=== PATIENT | female | born 1965 | race Caucasian/White ===

== ENCOUNTER → 2018-04-12 14:33 | Outpatient (CLI) | payer OTHER, SELFPAY ==
--- NOTE | 2018-04-12 | DI.MG.S_ITS ---
BILATERAL DIGITAL SCREENING MAMMOGRAM 3D/2D WITH CAD: 04/12/2018 CLINICAL: Routine screening. Comparison is made to exams dated: 03/27/2017 mammogram, 02/21/2016 mammogram, and 07/26/2015 mammogram - [facility]. There are scattered fibroglandular elements in both breasts. Current study was also evaluated with a Computer Aided Detection (CAD) system. No significant masses, calcifications, or other findings are seen in either breast. There has been no significant interval change. IMPRESSION: NEGATIVE There is no mammographic evidence of malignancy. A 1 year screening mammogram is recommended. This exam was interpreted at Station ID: [id number]. NOTE: For mammograms, a report in lay terms will be sent to the patient. Approximately 15% of breast malignancies will not be visualized mammographically. In the management of a palpable breast mass, a negative mammogram must not discourage biopsy of a clinically suspicious lesion. Electronically Signed By: Georgina gomez/mitch:04/12/2018 15:05:46 copy to: ERICA FRANCISCO letter sent: Normal Exam ACR BI-RADS Category 1: Negative 3341F
== END ==
PROVIDERS: Family Provider Family Medicine; PCP Family Medicine; Visit Provider Family Medicine
DX: Z12.31 Encounter for screening mammogram for malignant neoplasm of breast (principal)
CPT/HCPCS: 77063; 77067

== ENCOUNTER → 2018-10-08 08:28 | Outpatient (CLI) | payer OTHER, SELFPAY ==
[2018-10-08 09:21] LABS: Add Manual Diff / Slide Review NO; Basophils Absolute Auto 100 /uL (0-100); Basophils Percent Auto 0.7 % (0-2); Eosinophils Absolute Auto 700 /uL (0-450); Eosinophils Percent Auto 9.8 % (2-4); Hematocrit 42.8 % (36-46); Hemoglobin 14.4 g/dL (12.0-16.0); Lymphocytes Absolute Auto 2000 /uL (1100-4500); Lymphocytes Percent Auto 27.2 % (25-40); Mean Corpuscular HGB Conc 33.7 % (30-36); Mean Corpuscular Hemoglobin 29.2 PG (26-34); Mean Corpuscular Volume 86.8 fL (80-100); Monocytes Absolute Auto 500 /uL (0-900); Monocytes Percent Auto 6.9 % (3-14); Neutrophils Absolute Auto 4100 /uL (1500-7000); Neutrophils Percent Auto 55.4 % (50-75); Platelet Count 187 X10^3/uL (150-400); Red Blood Cell Count 4.93 X10^6/uL (4.0-5.2); Red Cell Distribution Width 13.5 % (11.6-14.8); White Blood Cell Count 7.4 X10^3/uL (4.5-11.0)
[2018-10-08 09:52] LABS: Alanine Aminotransferase 28 IU/L (9-52); Albumin 4.4 g/dL (3.5-5.0); Albumin Globulin Ratio 1.5 (1.0-2.8); Alkaline Phosphatase 45 U/L (38-126); Aspartate Aminotransferase 23 IU/L (14-36); BUN Creatinine Ratio 13.8 (6-22); Bilirubin Total 0.6 mg/dL (0.2-1.3); Blood Urea Nitrogen 11 mg/dL (7-17); Calcium 8.9 mg/dL (8.4-10.2); Carbon Dioxide 25 mmol/L (22-32); Chloride 105 mmol/L (98-107); Cholesterol 223 mg/dL (140-199); Estimated Glomerular Filt Rate > 60.0 mL/min (>60); Globulin 2.9 g/dL (1.7-4.1); Glucose 89 mg/dL (70-100); HDL Cholesterol 53 mg/dL (40-60); HEMOLYSIS < 15 (0-50); LDL Cholesterol Calculated 133 mg/dL (<100); Potassium 4.1 mmol/L (3.4-5.1); Sodium 140 mmol/L (137-145); Total Protein 7.3 g/dL (6.3-8.2); Triglycerides 185 mg/dL (35-150)
[2018-10-08 10:18] LABS: TSH w/ Reflex to FT4 2.77 uIU/mL (0.47-4.68)
[2018-10-10 22:13] LABS: Estrogen 267.8 pg/mL
== END ==
PROVIDERS: Family Provider Family Medicine; PCP Family Medicine; Visit Provider Family Medicine
DX: E03.9 Hypothyroidism, unspecified (principal); N92.6 Irregular menstruation, unspecified; Z13.6 Encounter for screening for cardiovascular disorders
CPT/HCPCS: 36415; 80053; 80061; 82672; 83001; 84443; 85025

== ENCOUNTER 2019-04-11 07:32 | Day surgery (SDC) | payer OTHER, SELFPAY ==
[2019-04-11 07:50] VITALS: BP 136/83; PULSE 80; RESP 16; TEMP 36.6; O2SAT 98; BMI 26.6
[2019-04-11] MEDS: SODIUM CHLORIDE 0.9% 1,000 ML 200 ML IV (08:07)
[2019-04-11] MEDS: FLEETS ENEMA 1 EACH PR (08:11)
--- NOTE | 2019-04-11 08:33 | PM.HP.1 ---
History of Present Illness History of Present Illness Date Patient Seen: 04/11/19 Time Patient Seen: 08:33 Chief complaint: [id number] Narrative: 53-year-old woman presents for screening colonoscopy Last 12 years ago. No 1st degree family members with a history of colon cancer or rectal cancer. She is unsure of any family members have a history of polyps. No inflammatory bowel disease Patient History Medical History (Updated 05/25/18 @ 20:47 by Karen Clay) Hypothyroidism (Chronic) Surgical History (Updated 05/25/18 @ 20:47 by Karen Clay) History of third molar tooth extraction (~1981) Status post breast reduction (~2012) Status post laparoscopic supracervical hysterectomy (01/04/15) Status post ovarian cystectomy (~1994) Social History marital status: household members: spouse Smoking Status: Never smoker alcohol intake: current (ON OCCASION ) substance use type: does not use Family & Social History Social History: household members spouse Tobacco & Substance use: Smoking Status Never smoker alcohol intake current Meds Home Medications and Allergies Home Medications Medication Instructions Recorded Confirmed Type multivitamin [Multiple Vitamins] 1 tab PO QDAY #0 06/06/17 04/11/19 History levothyroxine 25 mcg tablet 25 mcg PO QDAY #90 tab 12/19/18 04/11/19 Rx Allergies Allergy/AdvReac Type Severity Reaction Status Date / Time meperidine Allergy Mild ITCH (NO Verified 12/19/18 14:30 RASH) Review of Systems Constitutional Constitutional: Denies fever(s) Eyes Eyes: Denies bulging eyes ENT Ears, Nose, Mouth, and Throat: No lip swelling Cardiovascular Cardiovascular: Denies generalize swelling Respiratory Respiratory: Denies stridor Gastrointestinal Gastrointestinal: Denies coffee ground emesis Musculoskeletal Musculoskeletal: Denies loss of height Integumentary/Breasts Skin/Breast: Denies wounds Neurologic Neurologic: Denies abnormal speech and Denies confusion Psychiatric Psychiatric: Denies confusion and Denies tactile hallucinations Endocrine Endocrine: Denies deepening of the voice Hematologic/Lymphatic Hematologic/Lymphatic: Denies lymphadenopathy Allergic/Immunologic Allergic/Immunologic: Denies lip swelling Exam Vital Signs (past 8 hours): - 04/11/19 07:50 Temperature 97.9 F Pulse Rate 80 Respiratory Rate 16 Blood Pressure 136/83 Pulse Oximetry 98 Oxygen Delivery Method Room Air Const General: cooperative and healthy appearing Orientation: alert HENMT Head: normal to inspection Nose: nares normal Mouth: oral mucosae normal and lip normal Eyes Eyelids: eyelids normal Conjunctivae: conjunctivae normal Sclera: sclerae normal Neck Neck: supple and other (No thyromegally) Chest Chest: other (LCTAB , regular respiratory effort) Cardio Rhythm: regular rhythm Heart Sounds: S1 normal, S2 normal, no gallops, no murmurs and no rubs GI Other: Abdomen soft nontender nondistended Skin General: no rashes or lesions noted Neuro General: alert and awake Psych Appearance: grossly normal Affect: normal affect Assessment & Plan Assessment & Plan narrative: 53-year-old woman presents for screening colonoscopy Risks and benefits of procedure discussed Risks including bleeding, , perforation, hypoxia, missed lesion all discussed Patient ready to proceed All questions answered
--- NOTE | 2019-04-11 08:39 | SUR.PREOP ---
Kristin delvalle given per Dr. Jauregui's instruction, reported pt's description of her output.
[2019-04-11] MEDS: fentaNYL 250 MCG/5 ML INJ IV (09:12)
[2019-04-11] MEDS: MIDAZOLAM 5 MG/5 ML VIAL IV (09:13)
--- NOTE | 2019-04-11 09:13 | PM.OP.ENDO ---
Operative Date/Time/Diagnoses Date of procedure: 04/11/19 Time of procedure: 09:13 Pre-op diagnosis: Colorectal cancer screening Procedure & Clinicians Study performed: Screening colonoscopy-complete Same procedure as scheduled: Yes Indications: 53-year-old woman 12 years status post most recent colonoscopy. No family history of colon or rectal cancer in first-degree relatives. No personal history of colon polyps Surgeon: Hunter Meredith Procedure Notes SCOAP/Timeout: Complete Procedure in detail: Patient was brought to the endoscopy suite, she was connected to appropriate monitoring. A time-out was completed. A digital rectal exam was performed without concern. She was sedated over the entire course of the procedure with 5 mg of midazolam and 150 micro g of fentanyl. 160 cm pediatric colonoscope was inserted through the anus and navigated through the folds of the rectum and the colon until the cecum was reached. This was done with minimal difficulty. The cecum was clearly identified via a prominent ileocecal valve as well as appendiceal orifice. The shoshone-paiute's foot was seen as well. The scope was then slowly withdrawn inspecting the mucosal surfaces. There are several large pools of liquid stool these were suctioned dry and irrigated for a good inspection of the colonic mucosa. At the level of the distal rectum the scope was retroflexed. No mucosal lesions were identified over the entire course of the procedure. Prep was adequate Patient tolerated the procedure well Scope withdrawal time: 9 Sedation minutes: 21 Specimen(s): none sent Complications: none Impression: Normal screening colonoscopy No polyps detected Post-procedure Recommendations: Colonscopy in 10 years Plan for aftercare: PACU then home Follow up: as needed Disposition: PACU
[2019-04-11 09:16] VITALS: BP 113/71; PULSE 71; RESP 14; TEMP 36.7; O2SAT 97
[2019-04-11 09:21] VITALS: BP 122/80; PULSE 70; RESP 12; O2SAT 97
[2019-04-11 09:26] VITALS: BP 113/76; PULSE 72; RESP 15; TEMP 36.8; O2SAT 97
[2019-04-11 09:39] VITALS: BP 110/69; PULSE 70; RESP 16; TEMP 36.4; O2SAT 99
== END 2019-04-11 09:41 | disposition home or self-care (01) ==
PROVIDERS: Family Provider Family Medicine; PCP Family Medicine; Visit Provider Surgery
PROC: 0DJD8ZZ Inspection of Lower Intestinal Tract, Via Natural or Artificial Opening Endoscopic (ICD-10-PCS; CPT 45378; principal; 2019-04-11 08:45)
DX: Z12.11 Encounter for screening for malignant neoplasm of colon (principal)
CPT/HCPCS: 45378; 99152; J2250; J3010

== ENCOUNTER → 2019-04-14 14:19 | Outpatient (CLI) | payer OTHER, SELFPAY ==
--- NOTE | 2019-04-14 | DI.MG.S_ITS ---
BILATERAL DIGITAL SCREENING MAMMOGRAM 3D/2D WITH CAD: 04/14/2019 CLINICAL: Routine screening. Comparison is made to exams dated: 04/12/2018 mammogram, 03/27/2017 mammogram, and 02/21/2016 mammogram - [facility]. There are scattered fibroglandular elements in both breasts. Current study was also evaluated with a Computer Aided Detection (CAD) system. No significant masses, calcifications, or other findings are seen in either breast. There has been no significant interval change. IMPRESSION: NEGATIVE There is no mammographic evidence of malignancy. A 1 year screening mammogram is recommended. This exam was interpreted at Station ID: [id number]. NOTE: For mammograms, a report in lay terms will be sent to the patient. Approximately 15% of breast malignancies will not be visualized mammographically. In the management of a palpable breast mass, a negative mammogram must not discourage biopsy of a clinically suspicious lesion. Electronically Signed By: Georgina gomez/mitch:04/14/2019 15:24:56 copy to: ERICA FRANCISCO letter sent: Normal Exam ACR BI-RADS Category 1: Negative 3341F
== END ==
PROVIDERS: PCP Family Medicine; Visit Provider Family Medicine
DX: Z12.31 Encounter for screening mammogram for malignant neoplasm of breast (principal)
CPT/HCPCS: 77063; 77067

== ENCOUNTER → 2020-01-22 10:36 | Outpatient (CLI) | payer OTHER, SELFPAY ==
[2020-01-22 11:42] LABS: Add Manual Diff / Slide Review NO; Basophils Absolute Auto 100 /uL (0-100); Basophils Percent Auto 0.8 % (0-2); Eosinophils Absolute Auto 400 /uL (0-450); Eosinophils Percent Auto 5.4 % (2-4); Hematocrit 44.2 % (36-46); Hemoglobin 15.6 g/dL (12.0-16.0); Lymphocytes Absolute Auto 2300 /uL (1100-4500); Lymphocytes Percent Auto 34.4 % (25-40); Mean Corpuscular HGB Conc 35.3 % (30-36); Mean Corpuscular Hemoglobin 30.2 PG (26-34); Mean Corpuscular Volume 85.5 fL (80-100); Monocytes Absolute Auto 600 /uL (0-900); Monocytes Percent Auto 8.3 % (3-14); Neutrophils Absolute Auto 3400 /uL (1500-7000); Neutrophils Percent Auto 51.1 % (50-75); Platelet Count 224 X10^3/uL (150-400); Red Blood Cell Count 5.17 X10^6/uL (4.0-5.2); Red Cell Distribution Width 13.2 % (11.6-14.8); White Blood Cell Count 6.6 X10^3/uL (4.5-11.0)
[2020-01-22 11:52] LABS: Alanine Aminotransferase 20 IU/L (<35); Albumin 4.9 g/dL (3.5-5.0); Albumin Globulin Ratio 1.8 (1.0-2.8); Alkaline Phosphatase 61 U/L (38-126); Aspartate Aminotransferase 28 IU/L (14-36); BUN Creatinine Ratio 16.1 (6-22); Bilirubin Total 0.9 mg/dL (0.2-1.3); Blood Urea Nitrogen 14 mg/dL (7-17); Calcium 9.9 mg/dL (8.4-10.2); Carbon Dioxide 24 mmol/L (22-32); Chloride 104 mmol/L (98-107); Cholesterol 248 mg/dL (140-199); Estimated Glomerular Filt Rate > 60.0 mL/min (>60); Globulin 2.8 g/dL (1.7-4.1); Glucose 95 mg/dL (70-100); HDL Cholesterol 61 mg/dL (40-60); HEMOLYSIS < 15 (0-50); LDL Cholesterol Calculated 160 mg/dL (<100); Potassium 4.6 mmol/L (3.4-5.1); Sodium 138 mmol/L (137-145); Total Protein 7.7 g/dL (6.3-8.2); Triglycerides 133 mg/dL (35-150)
[2020-01-22 12:24] LABS: TSH w/ Reflex to FT4 1.58 uIU/mL (0.47-4.68)
[2020-01-22 16:17] LABS: Luteinizing Hormone 8.39 mIU/mL
[2020-01-28 02:13] LABS: Estrogen 104 pg/mL (.)
== END ==
PROVIDERS: PCP Family Medicine; Referring Provider Family Medicine; Visit Provider Family Medicine
DX: E03.9 Hypothyroidism, unspecified (principal); E78.5 Hyperlipidemia, unspecified; R23.2 Flushing
CPT/HCPCS: 36415; 80053; 80061; 82672; 83001; 83002; 84443; 85025

== ENCOUNTER → 2020-05-01 14:00 | Outpatient (CLI) | payer OTHER, SELFPAY ==
--- NOTE | 2020-05-01 | DI.MG.S_ITS ---
BILATERAL DIGITAL SCREENING MAMMOGRAM 3D/2D WITH CAD: 05/01/2020 CLINICAL: Routine screening. Comparison is made to exams dated: 04/14/2019 mammogram, 04/12/2018 mammogram, and 03/27/2017 mammogram - [facility]. There are scattered fibroglandular elements in both breasts. Current study was also evaluated with a Computer Aided Detection (CAD) system. No significant masses, calcifications, or other findings are seen in either breast. There has been no significant interval change. IMPRESSION: NEGATIVE There is no mammographic evidence of malignancy. A 1 year screening mammogram is recommended. This exam was interpreted at Station ID: [id number]. NOTE: For mammograms, a report in lay terms will be sent to the patient. Approximately 15% of breast malignancies will not be visualized mammographically. In the management of a palpable breast mass, a negative mammogram must not discourage biopsy of a clinically suspicious lesion. Electronically Signed By: Georgina gomez/mitch:05/02/2020 16:10:56 copy to: ERICA FRANCISCO letter sent: Normal Exam ACR BI-RADS Category 1: Negative 3341F
== END ==
PROVIDERS: PCP Family Medicine; Referring Provider Family Medicine; Visit Provider Family Medicine
DX: Z12.31 Encounter for screening mammogram for malignant neoplasm of breast (principal)
CPT/HCPCS: 77063; 77067

== ENCOUNTER → 2020-11-11 15:51 | Outpatient (CLI) | payer OTHER, SELFPAY ==
[2020-11-11] MEDS: COVID-19 VACC #1, MRNA(MOD) 100 MCG/0.5 ML VIAL IM (16:01)
== END ==
PROVIDERS: PCP Family Medicine; Visit Provider Internal Medicine
DX: Z23 Encounter for immunization (principal)
CPT/HCPCS: 0011A; 91301

== ENCOUNTER → 2020-12-09 15:50 | Outpatient (CLI) | payer OTHER, SELFPAY ==
[2020-12-09] MEDS: COVID-19 VACC #2, MRNA(MOD) 100 MCG/0.5 ML VIAL IM (15:56)
== END ==
PROVIDERS: PCP Family Medicine; Visit Provider Internal Medicine
DX: Z23 Encounter for immunization (principal)
CPT/HCPCS: 0012A; 91301

== ENCOUNTER → 2021-04-07 15:05 | Outpatient (CLI) | payer OTHER, SELFPAY | PROVIDERS: PCP Family Medicine; Referring Provider Family Medicine; Visit Provider Family Medicine | DX: Z13.820 Encounter for screening for osteoporosis (principal) | CPT/HCPCS: 77080 ==

== ENCOUNTER → 2021-05-03 08:15 | Outpatient (CLI) | payer OTHER, SELFPAY ==
[2021-05-03 08:54] LABS: Add Manual Diff / Slide Review NO; Basophils Absolute Auto 0 /uL (0-100); Basophils Percent Auto 0.6 % (0-2); Eosinophils Absolute Auto 600 /uL (0-450); Eosinophils Percent Auto 9.2 % (2-4); Hematocrit 42.4 % (36-46); Hemoglobin 14.2 g/dL (12.0-16.0); Lymphocytes Absolute Auto 2100 /uL (1100-4500); Mean Corpuscular HGB Conc 33.6 % (30-36); Mean Corpuscular Hemoglobin 28.6 PG (26-34); Mean Corpuscular Volume 85.3 fL (80-100); Monocytes Absolute Auto 500 /uL (0-900); Monocytes Percent Auto 7.5 % (3-14); Neutrophils Absolute Auto 3200 /uL (1500-7000); Neutrophils Percent Auto 49.7 % (50-75); Platelet Count 186 X10^3/uL (150-400); Red Blood Cell Count 4.97 X10^6/uL (4.0-5.2); Red Cell Distribution Width 13.7 % (11.6-14.8); White Blood Cell Count 6.5 X10^3/uL (4.5-11.0)
[2021-05-03 09:18] LABS: Alanine Aminotransferase 30 IU/L (<35); Albumin 4.4 g/dL (3.5-5.0); Albumin Globulin Ratio 1.6 (1.0-2.8); Alkaline Phosphatase 51 U/L (38-126); Aspartate Aminotransferase 28 IU/L (14-36); BUN Creatinine Ratio 16.3 (6-22); Bilirubin Total 0.6 mg/dL (0.2-1.3); Blood Urea Nitrogen 13 mg/dL (7-17); Calcium 9.4 mg/dL (8.4-10.2); Carbon Dioxide 26 mmol/L (22-32); Chloride 105 mmol/L (98-107); Cholesterol 231 mg/dL (140-199); Estimated Glomerular Filt Rate > 60.0 mL/min (>60); Globulin 2.7 g/dL (1.7-4.1); Glucose 91 mg/dL (70-100); HDL Cholesterol 56 mg/dL (40-60); HEMOLYSIS < 15 (0-50); LDL Cholesterol Calculated 143 mg/dL (<100); Potassium 4.4 mmol/L (3.4-5.1); Sodium 140 mmol/L (137-145); Total Protein 7.1 g/dL (6.3-8.2); Triglycerides 161 mg/dL (35-150)
[2021-05-03 09:31] LABS: Follicle Stimulating Hormone 74.1 mIU/mL; Luteinizing Hormone 44.8 mIU/mL
[2021-05-03 09:44] LABS: Thyroid Stimulating Hormone 1.77 uIU/mL (0.47-4.68)
[2021-05-03 09:47] LABS: Estradiol, Total 10.6 pg/mL
== END ==
PROVIDERS: PCP Family Medicine; Referring Provider Family Medicine; Visit Provider Family Medicine
DX: E03.9 Hypothyroidism, unspecified (principal); N95.1 Menopausal and female climacteric states
CPT/HCPCS: 36415; 80053; 80061; 82670; 83001; 83002; 84443; 85025

== ENCOUNTER → 2021-05-19 16:39 | Outpatient (CLI) | payer OTHER, SELFPAY ==
--- NOTE | 2021-05-19 16:40 | DI.MG.S_ITS ---
BILATERAL DIGITAL SCREENING MAMMOGRAM 3D/2D WITH CAD: 05/19/2021 CLINICAL: Routine screening. Comparison is made to exams dated: 05/01/2020 mammogram, 04/14/2019 mammogram, 04/12/2018 mammogram, 03/27/2017 mammogram, and 02/21/2016 mammogram - [facility]. There are scattered fibroglandular elements in both breasts. Current study was also evaluated with a Computer Aided Detection (CAD) system. No significant masses, calcifications, or other findings are seen in either breast. There has been no significant interval change. IMPRESSION: NEGATIVE There is no mammographic evidence of malignancy. A 1 year screening mammogram is recommended. This exam was interpreted at Station ID: [id number]. NOTE: For mammograms, a report in lay terms will be sent to the patient. Approximately 15% of breast malignancies will not be visualized mammographically. In the management of a palpable breast mass, a negative mammogram must not discourage biopsy of a clinically suspicious lesion. Electronically Signed By: Mike polanco/mitch:05/19/2021 17:37:31 copy to: ERICA FRANCISCO letter sent: Normal Exam ACR BI-RADS Category 1: Negative 3341F
== END ==
PROVIDERS: PCP Family Medicine; Referring Provider Family Medicine; Visit Provider Family Medicine
DX: Z12.31 Encounter for screening mammogram for malignant neoplasm of breast (principal)
CPT/HCPCS: 77063; 77067

== ENCOUNTER → 2022-05-22 07:35 | Outpatient (CLI) | payer OTHER, SELFPAY ==
--- NOTE | 2022-05-22 07:36 | DI.MG.S_ITS ---
BILATERAL DIGITAL SCREENING MAMMOGRAM 3D/2D WITH CAD: 05/22/2022 CLINICAL: Routine screening. Comparison is made to exams dated: 05/19/2021 mammogram, 05/01/2020 mammogram, and 04/14/2019 mammogram - [facility]. There are scattered areas of fibroglandular density in both breasts (category b / 25%-50% glandular tissue). Current study was also evaluated with a Computer Aided Detection (CAD) system. There is a possible developing new asymmetry in the left breast central to the nipple middle depth. No other significant masses, calcifications, or other findings are seen in either breast. IMPRESSION: INCOMPLETE: NEEDS ADDITIONAL IMAGING EVALUATION The possible developing new asymmetry in the left breast is indeterminate. Additional views with possible ultrasound are recommended. Based on the Tyrer Cuzick model (a risk assessment model) the patient's lifetime risk is 11.1% and her 10 year risk is 3.4%. According to the ACR, ACS, and NCCN guidelines, an annual breast MRI exam along with mammogram is recommended if the patient's lifetime risk is 20% or greater. This exam was interpreted at Station ID: [id number]. NOTE: For mammograms, a report in lay terms will be sent to the patient. Approximately 15% of breast malignancies will not be visualized mammographically. In the management of a palpable breast mass, a negative mammogram must not discourage biopsy of a clinically suspicious lesion. Electronically Signed By: Erica Alfaro M.D., jr/mitch:05/30/2022 09:05:35 copy to: ERICA FRANCISCO letter sent: Additional Imaging Needed ACR BI-RADS Category 0: Incomplete 3340F
== END ==
PROVIDERS: PCP Family Medicine; Referring Provider Family Medicine; Visit Provider Family Medicine
DX: Z12.31 Encounter for screening mammogram for malignant neoplasm of breast (principal)
CPT/HCPCS: 77063; 77067

== ENCOUNTER → 2022-06-29 08:39 | Outpatient (CLI) | payer OTHER, SELFPAY ==
--- NOTE | 2022-06-29 08:39 | DI.MG.S_ITS ---
UNILATERAL LEFT DIGITAL DIAGNOSTIC MAMMOGRAM 3D/2D WITH ADDITIONAL VIEWS: 06/29/2022 CLINICAL: Patient returns today to evaluate an asymmetry in the left breast. Comparison is made to exams dated: 05/22/2022 mammogram, 05/19/2021 mammogram, and 05/01/2020 mammogram - [facility]. There are scattered areas of fibroglandular density in the left breast (category b / 25%-50% glandular tissue). There is a possible focal asymmetry in the left breast central to the nipple middle depth. This is less prominent. No other significant masses or calcifications are seen in the breast. IMPRESSION: INCOMPLETE: NEEDS ADDITIONAL IMAGING EVALUATION Possible focal asymmetry in the left breast resembles a fibroglandular tissue or lymph node and is indeterminate. A targeted ultrasound is recommended and will immediately follow. Based on the Tyrer Cuzick model (a risk assessment model) the patient's lifetime risk is 11.1% and her 10 year risk is 3.4%. According to the ACR, ACS, and NCCN guidelines, an annual breast MRI exam along with mammogram is recommended if the patient's lifetime risk is 20% or greater. This exam was interpreted at Station ID: [id number]. NOTE: For mammograms, a report in lay terms will be sent to the patient. Approximately 15% of breast malignancies will not be visualized mammographically. In the management of a palpable breast mass, a negative mammogram must not discourage biopsy of a clinically suspicious lesion. Electronically Signed By: Mike Chang M.D. [facility]/:06/29/2022 09:55:53 copy to: ERICA FRANCISCO ACR BI-RADS Category 0: Incomplete 3340F
--- NOTE | 2022-06-29 08:39 | DI.US.S_ITS ---
LIMITED ULTRASOUND OF LEFT BREAST: 06/29/2022 CLINICAL: Patient returns today to evaluate a focal asymmetry in the left breast. Comparison is made to exams dated: 06/29/2022 mammogram, 05/22/2022 mammogram, 05/19/2021 mammogram, 05/01/2020 mammogram, and 04/14/2019 mammogram - [facility]. Real-time ultrasound of the left breast was performed. Zaragoza scale images of the real-time examination were reviewed. No significant abnormalities were seen sonographically in the left breast in the region of the possible asymmetry. IMPRESSION: NEGATIVE There is no sonographic evidence of malignancy. A 1 year screening mammogram is recommended. Exam findings were conveyed to the patient. This exam was interpreted at Station ID: [id number]. Electronically Signed By: Mike Chang M.D. sl[facility]/:06/29/2022 09:55:12 copy to: ERICA FRANCISCO letter sent: Normal Exam Ultrasound BI-RADS: 1 Negative
== END ==
PROVIDERS: PCP Family Medicine; Referring Provider Family Medicine; Visit Provider Family Medicine
DX: R92.8 Other abnormal and inconclusive findings on diagnostic imaging of breast (principal)
CPT/HCPCS: 76642; 77065; G0279

== ENCOUNTER → 2022-11-27 11:59 | Outpatient (CLI) | payer OTHER, MEDICAID, SELFPAY ==
[2022-11-27 13:18] LABS: Add Manual Diff / Slide Review NO; Basophils Absolute Auto 100 /uL (0-100); Basophils Percent Auto 0.8 % (0-2); Eosinophils Absolute Auto 500 /uL (0-450); Eosinophils Percent Auto 6.5 % (2-4); Hematocrit 42.9 % (36-46); Hemoglobin 14.8 g/dL (12.0-16.0); Lymphocytes Absolute Auto 2600 /uL (1100-4500); Lymphocytes Percent Auto 31.8 % (25-40); Mean Corpuscular HGB Conc 34.4 % (30-36); Mean Corpuscular Hemoglobin 28.7 PG (26-34); Mean Corpuscular Volume 83.4 fL (80-100); Monocytes Absolute Auto 600 /uL (0-900); Neutrophils Absolute Auto 4400 /uL (1500-7000); Neutrophils Percent Auto 53.9 % (50-75); Platelet Count 217 X10^3/uL (150-400); Red Blood Cell Count 5.14 X10^6/uL (4.0-5.2); Red Cell Distribution Width 13.5 % (11.6-14.8); White Blood Cell Count 8.2 X10^3/uL (4.5-11.0)
[2022-11-27 13:33] LABS: Alanine Aminotransferase 35 IU/L (<35); Albumin 4.6 g/dL (3.5-5.0); Albumin Globulin Ratio 1.6 (1.0-2.8); Alkaline Phosphatase 69 U/L (38-126); Aspartate Aminotransferase 31 IU/L (14-36); BUN Creatinine Ratio 11.4 (6-22); Bilirubin Total 0.7 mg/dL (0.2-1.3); Blood Urea Nitrogen 9 mg/dL (7-17); Calcium 9.5 mg/dL (8.4-10.2); Carbon Dioxide 27 mmol/L (22-32); Chloride 104 mmol/L (98-107); Cholesterol 247 mg/dL (140-199); Estimated Glomerular Filt Rate > 60 mL/min (>60); Globulin 2.8 g/dL (1.7-4.1); Glucose 89 mg/dL (70-100); HDL Cholesterol 65 mg/dL (40-60); HEMOLYSIS < 15 (0-50); LDL Cholesterol Calculated 153 mg/dL (<100); Potassium 4.2 mmol/L (3.4-5.1); Sodium 139 mmol/L (137-145); Total Protein 7.4 g/dL (6.3-8.2); Triglycerides 143 mg/dL (35-150)
[2022-11-27 14:03] LABS: TSH w/ Reflex to FT4 1.33 uIU/mL (0.47-4.68)
[2022-11-28 20:02] LABS: Follicle Stimulating Hormone 71.3 mIU/mL; Luteinizing Hormone 35.4 mIU/mL
== END ==
PROVIDERS: PCP Family Medicine; Referring Provider Family Medicine; Visit Provider Family Medicine
DX: D25.9 Leiomyoma of uterus, unspecified (principal); E03.9 Hypothyroidism, unspecified; Z13.220 Encounter for screening for lipoid disorders; Z79.899 Other long term (current) drug therapy; N92.6 Irregular menstruation, unspecified
CPT/HCPCS: 36415; 80053; 80061; 83001; 83002; 84443; 85025

== ENCOUNTER → 2022-12-15 14:05 | Outpatient (CLI) | payer OTHER, MEDICAID, SELFPAY ==
--- NOTE | 2022-12-15 14:06 | DI.US.S_ITS ---
PROCEDURE: US PELVIC COMPLETE INDICATIONS: ovarian pain TECHNIQUE: Real-time scanning was performed of the pelvic organs, with image documentation. Additional endovaginal scanning was necessary due to incomplete visualization of the adnexal and endometrial structures by transabdominal scanning. COMPARISON: None. FINDINGS: Uterus: Surgically absent. Ovaries: The right ovary is not visualized. The left ovary measures 1.4 x 0.9 x 1.2 cm, with a calculated ovarian volume of 1 cc. There is normal vascularity in left ovary. Other: No pathologic free abdominal or pelvic fluid. IMPRESSION: 1. A cause for pelvic pain is not identified. 2. Right ovary is not visualized. If clinical concern for pathology persists, recommend CT or MRI for follow-up. 3. Normal appearance of left ovary. 4. No free fluid in pelvis We strive to produce accurate, complete, and clear reports of imaging services. To assist us in improving patient care, this report was composed using standard report templates and voice recognition software. Therefore, it may contain abnormal punctuation, insertions and/or omissions. Occasional wrong-word or sound-alike substitutions may occur. Though we review the report and make efforts to correct it, we do recommend that the report be read carefully in proper context to recognize any text inaccuracies. Dictated by: Zuly Arango M.D. on 12/15/2022 at 17:12 Approved by: Zuly Arango M.D. on 12/15/2022 at 17:15
== END ==
PROVIDERS: Family Provider Family Medicine; PCP Family Medicine; Referring Provider Family Medicine; Visit Provider Family Medicine
DX: N94.89 Other specified conditions associated with female genital organs and menstrual cycle (principal)
CPT/HCPCS: 76830; 76856; 93976

== ENCOUNTER → 2023-04-25 08:04 | Outpatient (CLI) | payer OTHER, MEDICAID, SELFPAY ==
[2023-04-25 10:31] LABS: TSH w/ Reflex to FT4 2.75 uIU/mL (0.47-4.68)
[2023-04-27 04:17] LABS: Hepatitis B Surf Ab Qualitativ Non Reactive (.)
== END ==
PROVIDERS: Family Provider Family Medicine; PCP Family Medicine; Referring Provider Family Medicine; Visit Provider Family Medicine
DX: Z01.84 Encounter for antibody response examination (principal); E03.9 Hypothyroidism, unspecified
CPT/HCPCS: 36415; 84443; 86706

== ENCOUNTER 2023-05-31 09:30 | Outpatient (RCR) | payer OTHER, MEDICAID, SELFPAY ==
--- NOTE | 2023-02-11 16:19 | PT.OIE ---
Current Diagnoses Stiffness of unspecified hip, not elsewhere classified (02/06/23) Sacrococcygeal disorders, not elsewhere classified (02/06/23) Radiculopathy, sacral and sacrococcygeal region (02/06/23) Pelvic and perineal pain (02/06/23) Past Medical History (Last Updated 05/25/18 @ 20:47 by Karen Clay) Hypothyroidism Past Surgical History (Last Updated 05/25/18 @ 20:47 by Karen Clay) History of third molar tooth extraction (~1981) Status post breast reduction (~2012) Status post laparoscopic supracervical hysterectomy (01/04/15) Status post ovarian cystectomy (~1994) Visit Care Team Role Provider Type Ashutosh Le MD Attending Provider Physician Family Provider Primary Care Provider Referring Provider Specialty: Family Practice Address: [address] [place] [address] Email: [email or web address] Physical Therapy Initial Evaluation PT-OP-A Visit Information Start: 02/06/23 10:34 Freq: Status: Active Protocol: Document 02/06/23 10:37 [facility] (Rec: 02/06/23 11:17 [facility] [id number]) Out-Patient Physical Therapy Visit Information Visit Information Visit Type Initial Evaluation Visit Start Time 10:35 Visit Stop Time 11:15 Total Visit Minutes 40 Visit Number 1 Evaluation Information Evaluation Date 02/06/23 PT-OP-B Current Condition Start: 02/06/23 10:34 Freq: Status: Active Protocol: Document 02/06/23 10:37 [facility] (Rec: 02/06/23 11:17 [facility] [id number]) Current Condition History of Current Condition Onset Date chronic over 15 years Current Complaints left tailbone and left buttock pain History of Current Condition She describes the pain as to the left of the tailbone type pain that comes and goes that has been going on for approx 15 years since she gave to Will. Once it is aggravated it is horrible pain and it lasts from 2 days. The pain will radiate from her left buttock down the back of her leg to her ankle. She describes the pain a nausea pain and there is swelling and tightness. Things like a road trip would aggravate it. 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 hx of right knee ACL rupture and LCL so her muscles in her right quad are holding it together. The other issue she has is when she has a virus it can exxacerbate her sympotms. 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 Functional Limitations- Work/School limited with sitting duration due to pain PT-OP-C Subjective Start: 02/06/23 10:34 Freq: Status: Active Protocol: Document 02/06/23 10:30 [facility] (Rec: 02/11/23 09:43 [facility] [id number]) OP-PT Pain Assessment Location left sacral pain Pain Location Details let side of sacrum radiating into the buttocks and tailbone Intensity 8 Description Radiating,Shooting,Stabbing Description- Other worse with sitting activities Frequency Frequent PT-OP-F Manual Assessment Start: 02/06/23 10:34 Freq: Status: Active Protocol: Document 02/06/23 10:30 [facility] (Rec: 02/11/23 16:02 [facility] [id number]) Manual Assessments Soft Tissue Assessment Soft Tissue Mobility Assessment guarding along the gluteals and pt holds herself very tight in the gluteals, paraspinal guarding B and piriformis guarding, iliopsoas tightness R >L Joint Mobility Assessment Joint Mobility Assessment SI unlocks with ASLR raise, sacrum is held in a nutated and rotated left position Other Manual Assessments Other Manual Assessments posterior pelvic tilt of the sacrum, hamstring tightness in standing keeps pt in a posterior pelvic tilt position PT-OP-J Posture/Palpation/Skin Start: 02/06/23 10:34 Freq: Status: Active Protocol: Document 02/06/23 10:30 [facility] (Rec: 02/11/23 16:02 [facility] [id number]) Posture Evaluation Comments Posture Comments posterior pelvic tilt with gluteal guarding Palpation Assessment Location left sacral BARBY Palpation Findings Soft Tissue Tightness,Muscle Guarding,Tenderness PT-OP-K Range of Motion Start: 02/11/23 16:02 Freq: Status: Active Protocol: Document 02/06/23 10:30 [facility] (Rec: 02/11/23 16:04 [facility] [id number]) Hip Goniometric Range of Motion Hip Right Hip ROM WFL No Testing Position Supine Flexion w/Knee Flexed 100 Straight Leg Raise 55 Internal Rotation 10 External Rotation 35 Comments + brenna test for iliopsoas rightness R>L left Hip ROM WFL No Testing Position Supine Flexion w/Knee Flexed 100 Straight Leg Raise 50 Internal Rotation 5 External Rotation 30 Comments + brenna test for iliopsoas tightness Hip ROM Limitations Hip ROM Limitations Soft Tissue Tightness Comments IR limited and piriformis tightness L>R PT-OP-M Strength Start: 02/06/23 10:34 Freq: Status: Active Protocol: Document 02/06/23 10:30 [facility] (Rec: 02/11/23 16:02 [facility] [id number]) Trunk Strength Trunk Manual Muscle Testing Testing Position Supine Flexion 3 Fair Core Stabilization decreased core stabilization and TA activation PT-OP-Q Treatments Start: 02/06/23 10:34 Freq: Status: Active Protocol: Document 02/06/23 13:41 [facility] (Rec: 02/06/23 13:44 [facility] [id number]) Therapeutic Exercises Supine Exercises happy baby Reps/Minutes 1-2 reps holding at least 30 sec supine piriformis stretch with opp leg straight Side bilateral Reps/Minutes 1-2 reps holding at least 30 sec Comments cues to pull knee across the chest hip flexor stretch Side bilateral Reps/Minutes 1-2 reps holding at least 30 seconds Comments in brenna test position Other Exercises cat cow Reps/Minutes x 10 reps PT-OP-T Assessment and Plan Start: 02/06/23 10:34 Freq: Status: Active Protocol: Document 02/06/23 10:30 [facility] (Rec: 02/11/23 16:11 [facility] [id number]) Physical Therapy Assessment Rehab Potential Rehabilitation Potential Excellent Evaluation Complexity Number of Personal Factors/Comorbidities 0 Number of Body Systems Impaired 1-2 Clinical Presentation at Evaluation Stable Impairments Impairments Activity Tolerance,Functional Activities,Pain,Posture,ROM, Soft Tissue Mobility,Strength Goals 3 Impairment Decreased hip ROM with IR on the left being the most tight as compared to the right. Piriformis tightness and guarding on the left. Ship Carpenter Goal (LTG) Nusrat demonstrates improved hip ROM on the left to be equal to the right LTG Duration 12 weeks 2 Impairment Poor postural habits with pt standing with gluteals clenched and in a posterior pelvic tilt position Short Term Goal (STG) Nusrat is educated on seating the femoral heads in standing to reduce tone of the gluteals and reduce pain STG Duration 4 weeks Ship Carpenter Goal (LTG) Nusrat is able to mincemeat maker neutral spine and relaxed gluteals LTG Duration 12 weeks 1 Impairment left sided sacral and coccyx pain rated 8/10 made worse with sitting Care Home Goal (LTG) Nusrat reports a overall reduction in pain and is able to sit for a hour or longer duration LTG Duration 12 weeks Assessment Summary Assessment Nusrat is a 57 year old female referred to PT with pelvic pain and left sacral/coccyx pain. Nusrat feels her anterior pelvic pain was bowel related and has resolved at this point. She has chief complaints of chronic left sacral and tailbone pain since her vaginal delivery 15 years ago. Sitting increases her pain and she has recently stopped working as the sitting was too painful. With examination she stands in a posteriorly tilted position with guarding of the gluteals. She has pain along the left lateral angle of the sacrum and her sacrum is rotated to the left. She has decreased hip rotation both IR and ER on the left as compared to the right. Her right leg is shorter in supine and she does use a lift for her right foot . Nusrat rates her pain a 6- 8/10 in the left sacral region and into the gluteals. She presents with pelvic floor and core weakenss for SI stabilization. Nusrat has a history of a right knee ACL and LCL tear 6 years ago. She elected not to do surgery and as a result of this tear notes she is always guarded in her hamstring and quads on the left. Treatment for Nusrat will focus on postural modifications, stretches for the gluteals and stabilization exercises for her core. Manual therapy techniques will be used for SI and sacral alignment. Physical Therapy Plan Frequency and Duration Frequency of Treatment 2x/Week Duration of treatment (weeks) 12 Plan of Care Start Date 02/06/23 Plan of Care End Date 05/01/23 Therapeutic Interventions Therapeutic Interventions Home Exercise Program,Joint Mobilizations,Manual Therapy, Neuromuscular Re-education, Patient/Caregiver Education, Self-Care/Home Management,Soft Tissue Mobilization, Therapeutic Exercises Next Visit Focus/Plan Next Note Type Treatment Note Next Visit Plan review stretches given this visit and begin core stabilization, work on manual therapy techniques for sacral alignement and piriformis release on the left
--- NOTE | 2023-02-11 16:20 | PT.OPPOC ---
Physical, Occupational & Speech Therapy At [facility] Current Diagnoses Stiffness of unspecified hip, not elsewhere classified (02/06/23) Sacrococcygeal disorders, not elsewhere classified (02/06/23) Radiculopathy, sacral and sacrococcygeal region (02/06/23) Pelvic and perineal pain (02/06/23) Visit Care Team Role Provider Type Ashutosh Le MD Attending Provider Physician Family Provider Primary Care Provider Referring Provider Specialty: Family Practice Address: [address] [place] [address] Email: [email or web address] Plan Of Care PT-OP-T Assessment and Plan Start: 02/06/23 10:34 Freq: Status: Active Protocol: Document 02/06/23 10:30 [facility] (Rec: 02/11/23 16:11 [facility] [id number]) Physical Therapy Assessment Rehab Potential Rehabilitation Potential Excellent Evaluation Complexity Number of Personal Factors/Comorbidities 0 Number of Body Systems Impaired 1-2 Clinical Presentation at Evaluation Stable Impairments Impairments Activity Tolerance,Functional Activities,Pain,Posture,ROM, Soft Tissue Mobility,Strength Goals 3 Impairment Decreased hip ROM with IR on the left being the most tight as compared to the right. Piriformis tightness and guarding on the left. 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 Nusrat feels her anterior pelvic pain was bowel related and has resolved at this point. She has chief complaints of chronic left sacral and tailbone pain since her vaginal delivery 15 years ago. Sitting increases her pain and she has recently stopped working as the sitting was too painful. With examination she stands in a posteriorly tilted position with guarding of the gluteals. She has pain along the left lateral angle of the sacrum and her sacrum is rotated to the left. She has decreased hip rotation both IR and ER on the left as compared to the right. Her right leg is shorter in supine and she does use a lift for her right foot . Nusrat rates her pain a 6- 8/10 in the left sacral region and into the gluteals. She presents with pelvic floor and core weakness for SI stabilization. Nusrat has a history of a right knee ACL and LCL tear 6 years ago. She elected not to do surgery and as a result of this tear notes she is always guarded in her hamstring and quads on the left. Treatment for Nusrat will focus on postural modifications, stretches for the gluteals and stabilization exercises for her core. Manual therapy techniques will be used for SI and sacral alignment. Physical Therapy Plan Frequency and Duration Frequency of Treatment 2x/Week Duration of treatment (weeks) 12 Plan of Care Start Date 02/06/23 Plan of Care End Date 05/01/23 Therapeutic Interventions Therapeutic Interventions Home Exercise Program,Joint Mobilizations,Manual Therapy, Neuromuscular Re-education, Patient/Caregiver Education, Self-Care/Home Management,Soft Tissue Mobilization, Therapeutic Exercises Next Visit Focus/Plan Next Note Type Treatment Note Next Visit Plan review stretches given this visit and begin core stabilization, work on manual therapy techniques for sacral alignment and piriformis release on the left Plan of Care Dates Plan of Care Start Date 02/06/23 Plan of Care End Date 05/01/23 Electronically Signed by: Debby Porter, PT 02/11/23 2321 If you are in agreement with this Plan of Care, please return a signed and dated copy. I have reviewed this Plan of Care and certify that the skilled therapy services above are required to meet the patient?s needs. Physician Signature Date Printed Name and Credentials Clinical Instructor Signature Printed Name and Credentials
--- NOTE | 2023-03-13 14:40 | PT.OTN ---
Current Diagnoses Stiffness of unspecified hip, not elsewhere classified (03/13/23) Sacrococcygeal disorders, not elsewhere classified (03/13/23) Radiculopathy, sacral and sacrococcygeal region (03/13/23) Pelvic and perineal pain (03/13/23) Physical Therapy Treatment Note PT-OP-A Visit Information Start: 02/06/23 10:34 Freq: Status: Active Protocol: Document 03/13/23 10:30 [facility] (Rec: 03/13/23 14:38 [facility] [id number]) Out-Patient Physical Therapy Visit Information Visit Information Visit Type Treatment Note Visit Start Time 10:32 Visit Stop Time 11:17 Total Visit Minutes 45 Visit Number 2 Evaluation Information Evaluation Date 02/06/23 PT-OP-B Current Condition Start: 02/06/23 10:34 Freq: Status: Active Protocol: Document 02/06/23 10:37 [facility] (Rec: 02/06/23 11:17 [facility] [id number]) Current Condition History of Current Condition Onset Date chronic over 15 years Current Complaints left tailbone and left buttock pain History of Current Condition She describes the pain as to the left of the tailbone type pain that comes and goes that has been going on for approx 15 years since she gave to Will. Once it is aggravated it is horrible pain and it lasts from 2 days. The pain will radiate from her left buttock down the back of her leg to her ankle. She describes the pain a nausea pain and there is swelling and tightness. Things like a road trip would aggravate it. 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 hx of right knee ACL rupture and LCL so her muscles in her right quad are holding it together. The other issue she has is when she has a virus it can exxacerbate her sympotms. 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 SHe has been driving a lot too. PT-OP-F Manual Assessment Start: 02/06/23 10:34 Freq: Status: Active Protocol: Document 02/06/23 10:30 [facility] (Rec: 02/11/23 16:02 [facility] [id number]) Manual Assessments Soft Tissue Assessment Soft Tissue Mobility Assessment guarding along the gluteals and pt holds herself very tight in the gluteals, paraspinal guarding B and piriformis guarding, iliopsoas tightness R >L Joint Mobility Assessment Joint Mobility Assessment SI unlocks with ASLR raise, sacrum is held in a nutated and rotated left position Other Manual Assessments Other Manual Assessments posterior pelvic tilt of the sacrum, hamstring tightness in standing keeps pt in a posterior pelvic tilt position PT-OP-J Posture/Palpation/Skin Start: 02/06/23 10:34 Freq: Status: Active Protocol: Document 02/06/23 10:30 [facility] (Rec: 02/11/23 16:02 [facility] [id number]) Posture Evaluation Comments Posture Comments posterior pelvic tilt with gluteal guarding Palpation Assessment Location left sacral BARBY Palpation Findings Soft Tissue Tightness,Muscle Guarding,Tenderness PT-OP-K Range of Motion Start: 02/11/23 16:02 Freq: Status: Active Protocol: Document 02/06/23 10:30 [facility] (Rec: 02/11/23 16:04 [facility] [id number]) Hip Goniometric Range of Motion Hip Right Hip ROM WFL No Testing Position Supine Flexion w/Knee Flexed 100 Straight Leg Raise 55 Internal Rotation 10 External Rotation 35 Comments + brenna test for iliopsoas rightness R>L left Hip ROM WFL No Testing Position Supine Flexion w/Knee Flexed 100 Straight Leg Raise 50 Internal Rotation 5 External Rotation 30 Comments + brenna test for iliopsoas tightness Hip ROM Limitations Hip ROM Limitations Soft Tissue Tightness Comments IR limited and piriformis tightness L>R PT-OP-M Strength Start: 02/06/23 10:34 Freq: Status: Active Protocol: Document 02/06/23 10:30 [facility] (Rec: 02/11/23 16:02 [facility] [id number]) Trunk Strength Trunk Manual Muscle Testing Testing Position Supine Flexion 3 Fair Core Stabilization decreased core stabilization and TA activation PT-OP-Q Treatments Start: 02/06/23 10:34 Freq: Status: Active Protocol: Document 03/13/23 10:33 [facility] (Rec: 03/13/23 12:33 [facility] [id number]) Therapeutic Exercises Supine Exercises supine ball squeeze with pelvic floor Reps/Minutes x 10 reps TA with march Comments do one side at a time happy baby Reps/Minutes 1-2 reps holding at least 30 sec supine piriformis stretch with opp leg straight Side bilateral Reps/Minutes 1-2 reps holding at least 30 sec Comments cues to pull knee across the chest hip flexor stretch Side bilateral Reps/Minutes 1-2 reps holding at least 30 seconds Comments in brenna test position Manual Therapy Treatment Soft Tissue Mobilization MFR for the left piriformis Body Position Prone Comments tight left piriformis and IR/ ER stretches were performed in this position. Hip IR very tight on the left side Manual Techniques MET right posterior innominant Reps/Duration x 5 reps Comments right leg shorter in supine PT-OP-T Assessment and Plan Start: 02/06/23 10:34 Freq: Status: Active Protocol: Document 03/13/23 10:30 [facility] (Rec: 03/13/23 14:38 [facility] [id number]) Physical Therapy Assessment Assessment Summary Assessment Nusrat did well with her stretches after last visit, she tolerated treatment well today, she is much tighter on the left side with her hip IR. I began TA stabilization for her today and also added in ball squeeze as well. She has been able to keep sciatic symptoms from exaccerbation with stretches. Physical Therapy Plan Frequency and Duration Frequency of Treatment 2x/Week Duration of treatment (weeks) 12 Plan of Care Start Date 02/06/23 Plan of Care End Date 05/01/23 Therapeutic Interventions Therapeutic Interventions Home Exercise Program,Joint Mobilizations,Manual Therapy, Neuromuscular Re-education, Patient/Caregiver Education, Self-Care/Home Management,Soft Tissue Mobilization, Therapeutic Exercises Next Visit Focus/Plan Next Visit Plan review stretches and core stabilization, work on manual therapy techniques for sacral alignement and piriformis release on the left
--- NOTE | 2023-03-21 13:12 | PT.OTN ---
Current Diagnoses Stiffness of unspecified hip, not elsewhere classified (03/21/23) Sacrococcygeal disorders, not elsewhere classified (03/21/23) Radiculopathy, sacral and sacrococcygeal region (03/21/23) Pelvic and perineal pain (03/21/23) Physical Therapy Treatment Note PT-OP-A Visit Information Start: 02/06/23 10:34 Freq: Status: Active Protocol: Document 03/21/23 11:13 [facility] (Rec: 03/21/23 12:07 [facility] [id number]) Out-Patient Physical Therapy Visit Information Visit Information Visit Type Treatment Note Visit Start Time 11:15 Visit Stop Time 12:00 Total Visit Minutes 45 Visit Number 3 PT-OP-B Current Condition Start: 02/06/23 10:34 Freq: Status: Active Protocol: Document 02/06/23 10:37 [facility] (Rec: 02/06/23 11:17 [facility] [id number]) Current Condition History of Current Condition Onset Date chronic over 15 years Current Complaints left tailbone and left buttock pain History of Current Condition She describes the pain as to the left of the tailbone type pain that comes and goes that has been going on for approx 15 years since she gave to Will. Once it is aggravated it is horrible pain and it lasts from 2 days. The pain will radiate from her left buttock down the back of her leg to her ankle. She describes the pain a nausea pain and there is swelling and tightness. Things like a road trip would aggravate it. 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 hx of right knee ACL rupture and LCL so her muscles in her right quad are holding it together. The other issue she has is when she has a virus it can exxacerbate her sympotms. 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 Functional Limitations- Work/School limited with sitting duration due to pain PT-OP-C Subjective Start: 02/06/23 10:34 Freq: Status: Active Protocol: Document 03/21/23 11:13 [facility] (Rec: 03/21/23 12:07 [facility] [id number]) OP-PT Subjective Patient Comments Patient Comments pt notes she is doing pretty good considering 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 in [place] No complaints of sciatic symptoms Patient Reported Progress Improving PT-OP-F Manual Assessment Start: 02/06/23 10:34 Freq: Status: Active Protocol: Document 02/06/23 10:30 [facility] (Rec: 02/11/23 16:02 [facility] [id number]) Manual Assessments Soft Tissue Assessment Soft Tissue Mobility Assessment guarding along the gluteals and pt holds herself very tight in the gluteals, paraspinal guarding B and piriformis guarding, iliopsoas tightness R >L Joint Mobility Assessment Joint Mobility Assessment SI unlocks with ASLR raise, sacrum is held in a nutated and rotated left position Other Manual Assessments Other Manual Assessments posterior pelvic tilt of the sacrum, hamstring tightness in standing keeps pt in a posterior pelvic tilt position PT-OP-J Posture/Palpation/Skin Start: 02/06/23 10:34 Freq: Status: Active Protocol: Document 02/06/23 10:30 [facility] (Rec: 02/11/23 16:02 [facility] [id number]) Posture Evaluation Comments Posture Comments posterior pelvic tilt with gluteal guarding Palpation Assessment Location left sacral BARBY Palpation Findings Soft Tissue Tightness,Muscle Guarding,Tenderness PT-OP-K Range of Motion Start: 02/11/23 16:02 Freq: Status: Active Protocol: Document 02/06/23 10:30 [facility] (Rec: 02/11/23 16:04 [facility] [id number]) Hip Goniometric Range of Motion Hip Right Hip ROM WFL No Testing Position Supine Flexion w/Knee Flexed 100 Straight Leg Raise 55 Internal Rotation 10 External Rotation 35 Comments + brenna test for iliopsoas rightness R>L left Hip ROM WFL No Testing Position Supine Flexion w/Knee Flexed 100 Straight Leg Raise 50 Internal Rotation 5 External Rotation 30 Comments + brenna test for iliopsoas tightness Hip ROM Limitations Hip ROM Limitations Soft Tissue Tightness Comments IR limited and piriformis tightness L>R PT-OP-M Strength Start: 02/06/23 10:34 Freq: Status: Active Protocol: Document 02/06/23 10:30 [facility] (Rec: 02/11/23 16:02 [facility] [id number]) Trunk Strength Trunk Manual Muscle Testing Testing Position Supine Flexion 3 Fair Core Stabilization decreased core stabilization and TA activation PT-OP-Q Treatments Start: 02/06/23 10:34 Freq: Status: Active Protocol: Document 03/21/23 11:13 [facility] (Rec: 03/21/23 12:07 [facility] [id number]) Therapeutic Exercises Supine Exercises TA with SLR Reps/Minutes x 10 reps supine ball squeeze with pelvic floor Reps/Minutes x 10 reps TA with march Comments able to alternate marches each side Other Exercises Active hamstring stretch Reps/Minutes x 10 reps modified down dog using the plinth for hand hold Reps/Minutes hold 30 sec x 2 Manual Therapy Treatment Soft Tissue Mobilization MFR for the left piriformis Body Position Prone Comments tenderness along the left BARBY but improving length of the piriformis PT-OP-T Assessment and Plan Start: 02/06/23 10:34 Freq: Status: Active Protocol: Document 03/21/23 11:13 [facility] (Rec: 03/21/23 13:10 [facility] [id number]) Physical Therapy Assessment Assessment Summary Assessment Nusrat is tolerating treatment well, right leg was only slightly shorter today as she did not seem as tight as she has been. She is able to tolerate TA with alternating marches and I added in TA with SLR today as well with good tolerance. Hip hinging is very difficult for her to do due to tightness in the hamstrings and she would benefit from continued work in this area Physical Therapy Plan Frequency and Duration Frequency of Treatment 2x/Week Duration of treatment (weeks) 12 Plan of Care Start Date 02/06/23 Plan of Care End Date 05/01/23 Therapeutic Interventions Therapeutic Interventions Home Exercise Program,Joint Mobilizations,Manual Therapy, Neuromuscular Re-education, Patient/Caregiver Education, Self-Care/Home Management,Soft Tissue Mobilization, Therapeutic Exercises Next Visit Focus/Plan Next Note Type Treatment Note Next Visit Plan Review hip hinges and core stabilization, work on manual therapy techniques for sacral alignement and piriformis release on the left.
--- NOTE | 2023-03-29 10:46 | PT.OTN ---
Current Diagnoses Stiffness of unspecified hip, not elsewhere classified (03/29/23) Sacrococcygeal disorders, not elsewhere classified (03/29/23) Radiculopathy, sacral and sacrococcygeal region (03/29/23) Pelvic and perineal pain (03/29/23) Physical Therapy Treatment Note PT-OP-A Visit Information Start: 02/06/23 10:34 Freq: Status: Active Protocol: Document 03/29/23 10:38 [facility] (Rec: 03/29/23 10:45 [facility] [id number]) Out-Patient Physical Therapy Visit Information Visit Information Visit Type Treatment Note Visit Start Time 09:35 Visit Stop Time 10:15 Total Visit Minutes 40 Visit Number 4 PT-OP-B Current Condition Start: 02/06/23 10:34 Freq: Status: Active Protocol: Document 02/06/23 10:37 [facility] (Rec: 02/06/23 11:17 [facility] [id number]) Current Condition History of Current Condition Onset Date chronic over 15 years Current Complaints left tailbone and left buttock pain History of Current Condition She describes the pain as to the left of the tailbone type pain that comes and goes that has been going on for approx 15 years since she gave to Will. Once it is aggravated it is horrible pain and it lasts from 2 days. The pain will radiate from her left buttock down the back of her leg to her ankle. She describes the pain a nausea pain and there is swelling and tightness. Things like a road trip would aggravate it. 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 hx of right knee ACL rupture and LCL so her muscles in her right quad are holding it together. The other issue she has is when she has a virus it can exxacerbate her sympotms. 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 Functional Limitations- Work/School limited with sitting duration due to pain PT-OP-C Subjective Start: 02/06/23 10:34 Freq: Status: Active Protocol: Document 03/29/23 10:38 [facility] (Rec: 03/29/23 10:45 [facility] [id number]) OP-PT Subjective Patient Comments Patient Comments Nusrat reports she has not had the sciatica, the hamstring stretches can be painful so she is working into these slowly, she has had low back discomfort but not sure if this is from traveling PT-OP-F Manual Assessment Start: 02/06/23 10:34 Freq: Status: Active Protocol: Document 02/06/23 10:30 [facility] (Rec: 02/11/23 16:02 [facility] [id number]) Manual Assessments Soft Tissue Assessment Soft Tissue Mobility Assessment guarding along the gluteals and pt holds herself very tight in the gluteals, paraspinal guarding B and piriformis guarding, iliopsoas tightness R >L Joint Mobility Assessment Joint Mobility Assessment SI unlocks with ASLR raise, sacrum is held in a nutated and rotated left position Other Manual Assessments Other Manual Assessments posterior pelvic tilt of the sacrum, hamstring tightness in standing keeps pt in a posterior pelvic tilt position PT-OP-J Posture/Palpation/Skin Start: 02/06/23 10:34 Freq: Status: Active Protocol: Document 02/06/23 10:30 [facility] (Rec: 02/11/23 16:02 [facility] [id number]) Posture Evaluation Comments Posture Comments posterior pelvic tilt with gluteal guarding Palpation Assessment Location left sacral BARBY Palpation Findings Soft Tissue Tightness,Muscle Guarding,Tenderness PT-OP-K Range of Motion Start: 02/11/23 16:02 Freq: Status: Active Protocol: Document 02/06/23 10:30 [facility] (Rec: 02/11/23 16:04 [facility] [id number]) Hip Goniometric Range of Motion Hip Right Hip ROM WFL No Testing Position Supine Flexion w/Knee Flexed 100 Straight Leg Raise 55 Internal Rotation 10 External Rotation 35 Comments + brenna test for iliopsoas rightness R>L left Hip ROM WFL No Testing Position Supine Flexion w/Knee Flexed 100 Straight Leg Raise 50 Internal Rotation 5 External Rotation 30 Comments + brenna test for iliopsoas tightness Hip ROM Limitations Hip ROM Limitations Soft Tissue Tightness Comments IR limited and piriformis tightness L>R PT-OP-M Strength Start: 02/06/23 10:34 Freq: Status: Active Protocol: Document 02/06/23 10:30 [facility] (Rec: 02/11/23 16:02 [facility] [id number]) Trunk Strength Trunk Manual Muscle Testing Testing Position Supine Flexion 3 Fair Core Stabilization decreased core stabilization and TA activation PT-OP-Q Treatments Start: 02/06/23 10:34 Freq: Status: Active Protocol: Document 03/29/23 10:38 [facility] (Rec: 03/29/23 10:45 [facility] [id number]) Therapeutic Exercises Supine Exercises supine ball squeeze with pelvic floor Reps/Minutes x 10 reps happy baby Reps/Minutes 1-2 reps holding at least 30 sec supine piriformis stretch with opp leg straight Side bilateral Reps/Minutes 1-2 reps holding at least 30 sec Comments cues to pull knee across the chest Other Exercises quadruped thoracic rotation Reps/Minutes x 10 reps quadruped sidebends Reps/Minutes x 10 reps modified down dog using the plinth for hand hold Reps/Minutes hold 30 sec x 2 Comments cues to bend from the knees if it too much pull on hamstrings cat cow Reps/Minutes x 10 reps Manual Therapy Treatment Soft Tissue Mobilization Right side QL release Comments right QL is much tighter than left and may be contributing to right leg being shorter MFR for the left piriformis Body Position Prone Comments not as much tenderness today along the left of the sacrum Manual Techniques manual iliopsoas stretch in brenna test position Comments hold 1-2 min each leg with fascial release to the quad with stretch MET right posterior innominant Reps/Duration x 5 reps Comments right leg shorter in supine PT-OP-T Assessment and Plan Start: 02/06/23 10:34 Freq: Status: Active Protocol: Document 03/29/23 10:38 [facility] (Rec: 03/29/23 10:45 [facility] [id number]) Physical Therapy Assessment Goals 3 Impairment Decreased hip ROM with IR on the left being the most tight as compared to the right. Piriformis tightness and guarding on the left. Fly Winder Goal (LTG) Nusrat demonstrates improved hip ROM on the left to be equal to the right LTG Duration 12 weeks 2 Impairment Poor postural habits with pt standing with gluteals clenched and in a posterior pelvic tilt position Short Term Goal (STG) Nusrat is educated on seating the femoral heads in standing to reduce tone of the gluteals and reduce pain STG Duration 4 weeks Fly Winder Goal (LTG) Nusrat is able to mailing manager neutral spine and relaxed gluteals LTG Duration 12 weeks 1 Impairment left sided sacral and coccyx pain rated 8/10 made worse with sitting Fly Winder Goal (LTG) Nusrat reports a overall reduction in pain and is able to sit for a hour or longer duration LTG Duration 12 weeks Assessment Summary Assessment Right side shorter today, Right QL is very tight and may be contributing to the pelvis being shifted on the right side. Nusrat was shown quadruped sidebends and rotations today to help reduce tension here Physical Therapy Plan Frequency and Duration Frequency of Treatment 2x/Week Duration of treatment (weeks) 12 Plan of Care Start Date 02/06/23 Plan of Care End Date 05/01/23 Therapeutic Interventions Therapeutic Interventions Home Exercise Program,Joint Mobilizations,Manual Therapy, Neuromuscular Re-education, Patient/Caregiver Education, Self-Care/Home Management,Soft Tissue Mobilization, Therapeutic Exercises Next Visit Focus/Plan Next Note Type Treatment Note Next Visit Plan check QL tightness next visit, continue working on hip hinging and release the proximal hamstring attachments
--- NOTE | 2023-04-05 14:27 | PT.OTN ---
Current Diagnoses Stiffness of unspecified hip, not elsewhere classified (04/05/23) Sacrococcygeal disorders, not elsewhere classified (04/05/23) Radiculopathy, sacral and sacrococcygeal region (04/05/23) Pelvic and perineal pain (04/05/23) Physical Therapy Treatment Note PT-OP-A Visit Information Start: 02/06/23 10:34 Freq: Status: Active Protocol: Document 04/05/23 13:14 [facility] (Rec: 04/05/23 13:59 [facility] [id number]) Out-Patient Physical Therapy Visit Information Visit Information Visit Type Treatment Note Visit Start Time 13:15 Visit Stop Time 14:00 Total Visit Minutes 45 Visit Number 5 PT-OP-B Current Condition Start: 02/06/23 10:34 Freq: Status: Active Protocol: Document 02/06/23 10:37 [facility] (Rec: 02/06/23 11:17 [facility] [id number]) Current Condition History of Current Condition Onset Date chronic over 15 years Current Complaints left tailbone and left buttock pain History of Current Condition She describes the pain as to the left of the tailbone type pain that comes and goes that has been going on for approx 15 years since she gave to Will. Once it is aggravated it is horrible pain and it lasts from 2 days. The pain will radiate from her left buttock down the back of her leg to her ankle. She describes the pain a nausea pain and there is swelling and tightness. Things like a road trip would aggravate it. 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 hx of right knee ACL rupture and LCL so her muscles in her right quad are holding it together. The other issue she has is when she has a virus it can exxacerbate her sympotms. 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 She notes the modified down dog is getting better Patient Reported Progress Improving PT-OP-F Manual Assessment Start: 02/06/23 10:34 Freq: Status: Active Protocol: Document 02/06/23 10:30 [facility] (Rec: 02/11/23 16:02 [facility] [id number]) Manual Assessments Soft Tissue Assessment Soft Tissue Mobility Assessment guarding along the gluteals and pt holds herself very tight in the gluteals, paraspinal guarding B and piriformis guarding, iliopsoas tightness R >L Joint Mobility Assessment Joint Mobility Assessment SI unlocks with ASLR raise, sacrum is held in a nutated and rotated left position Other Manual Assessments Other Manual Assessments posterior pelvic tilt of the sacrum, hamstring tightness in standing keeps pt in a posterior pelvic tilt position PT-OP-J Posture/Palpation/Skin Start: 02/06/23 10:34 Freq: Status: Active Protocol: Document 02/06/23 10:30 [facility] (Rec: 02/11/23 16:02 [facility] [id number]) Posture Evaluation Comments Posture Comments posterior pelvic tilt with gluteal guarding Palpation Assessment Location left sacral BARBY Palpation Findings Soft Tissue Tightness,Muscle Guarding,Tenderness PT-OP-K Range of Motion Start: 02/11/23 16:02 Freq: Status: Active Protocol: Document 02/06/23 10:30 [facility] (Rec: 02/11/23 16:04 [facility] [id number]) Hip Goniometric Range of Motion Hip Right Hip ROM WFL No Testing Position Supine Flexion w/Knee Flexed 100 Straight Leg Raise 55 Internal Rotation 10 External Rotation 35 Comments + brenna test for iliopsoas rightness R>L left Hip ROM WFL No Testing Position Supine Flexion w/Knee Flexed 100 Straight Leg Raise 50 Internal Rotation 5 External Rotation 30 Comments + brenna test for iliopsoas tightness Hip ROM Limitations Hip ROM Limitations Soft Tissue Tightness Comments IR limited and piriformis tightness L>R PT-OP-M Strength Start: 02/06/23 10:34 Freq: Status: Active Protocol: Document 02/06/23 10:30 [facility] (Rec: 02/11/23 16:02 [facility] [id number]) Trunk Strength Trunk Manual Muscle Testing Testing Position Supine Flexion 3 Fair Core Stabilization decreased core stabilization and TA activation PT-OP-Q Treatments Start: 02/06/23 10:34 Freq: Status: Active Protocol: Document 04/05/23 13:14 [facility] (Rec: 04/05/23 13:59 [facility] [id number]) Therapeutic Exercises Supine Exercises TA with SLR Reps/Minutes x 10 reps supine ball squeeze with pelvic floor Reps/Minutes x 10 reps TA with march Comments able to alternate marches each side happy baby Reps/Minutes 1-2 reps holding at least 30 sec supine piriformis stretch with opp leg straight Side bilateral Reps/Minutes 1-2 reps holding at least 30 sec Comments cues to pull knee across the chest hip flexor stretch Side bilateral Reps/Minutes 1-2 reps holding at least 30 seconds Comments in brenna test position Other Exercises quadruped thoracic rotation Reps/Minutes x 10 reps quadruped sidebends Reps/Minutes x 10 reps cat cow Reps/Minutes x 10 reps Manual Therapy Treatment Soft Tissue Mobilization lumbar parapsinal release Comments worked bilaterally on releasing the paraspinals bilaterally, right greater than left sided tightness Right side QL release Comments right QL is much tighter than left and may be contributing to right leg being shorter Manual Techniques manual iliopsoas stretch in brenna test position Comments hold 1-2 min each leg with fascial release to the quad with stretch PT-OP-T Assessment and Plan Start: 02/06/23 10:34 Freq: Status: Active Protocol: Document 04/05/23 13:14 [facility] (Rec: 04/05/23 13:59 [facility] [id number]) Physical Therapy Assessment Goals 3 Impairment Decreased hip ROM with IR on the left being the most tight as compared to the right. Piriformis tightness and guarding on the left. Informatics Scientist Goal (LTG) Nusrat demonstrates improved hip ROM on the left to be equal to the right LTG Duration 12 weeks 2 Impairment Poor postural habits with pt standing with gluteals clenched and in a posterior pelvic tilt position Short Term Goal (STG) Nusrat is educated on seating the femoral heads in standing to reduce tone of the gluteals and reduce pain STG Duration 4 weeks Alf Goal (LTG) Nusrat is able to signals intelligence superintendent neutral spine and relaxed gluteals LTG Duration 12 weeks 1 Impairment left sided sacral and coccyx pain rated 8/10 made worse with sitting Informatics Scientist Goal (LTG) Nusrat reports a overall reduction in pain and is able to sit for a hour or longer duration LTG Duration 12 weeks Assessment Summary Assessment Nusrat is doing better overall with decreased sciatic and coccyx symptoms. She is still tight in the low back and does have thoracic spine hypomobility. She has a foam roll for home and I advised her to use it for encouraging thoracic mobility. Physical Therapy Plan Frequency and Duration Frequency of Treatment 2x/Week Duration of treatment (weeks) 12 Plan of Care Start Date 02/06/23 Plan of Care End Date 05/01/23 Therapeutic Interventions Therapeutic Interventions Home Exercise Program,Joint Mobilizations,Manual Therapy, Neuromuscular Re-education, Patient/Caregiver Education, Self-Care/Home Management,Soft Tissue Mobilization, Therapeutic Exercises Next Visit Focus/Plan Next Note Type Treatment Note Next Visit Plan Begin with foam roll both vertical and horizontal next visit for thoracic mobility and to help decompress the low back, hip rotation stretching and begin working into lateral hip stability
--- NOTE | 2023-04-17 16:08 | PT.OTN ---
Current Diagnoses Stiffness of unspecified hip, not elsewhere classified (04/17/23) Sacrococcygeal disorders, not elsewhere classified (04/17/23) Radiculopathy, sacral and sacrococcygeal region (04/17/23) Pelvic and perineal pain (04/17/23) Physical Therapy Treatment Note PT-OP-A Visit Information Start: 02/06/23 10:34 Freq: Status: Active Protocol: Document 04/17/23 15:03 [facility] (Rec: 04/17/23 16:07 [facility] [id number]) Out-Patient Physical Therapy Visit Information Visit Information Visit Type Treatment Note Visit Start Time 15:00 Visit Stop Time 15:45 Total Visit Minutes 45 Visit Number 6 Evaluation Information Evaluation Date 02/06/23 PT-OP-B Current Condition Start: 02/06/23 10:34 Freq: Status: Active Protocol: Document 02/06/23 10:37 [facility] (Rec: 02/06/23 11:17 [facility] [id number]) Current Condition History of Current Condition Onset Date chronic over 15 years Current Complaints left tailbone and left buttock pain History of Current Condition She describes the pain as to the left of the tailbone type pain that comes and goes that has been going on for approx 15 years since she gave to Will. Once it is aggravated it is horrible pain and it lasts from 2 days. The pain will radiate from her left buttock down the back of her leg to her ankle. She describes the pain a nausea pain and there is swelling and tightness. Things like a road trip would aggravate it. 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 hx of right knee ACL rupture and LCL so her muscles in her right quad are holding it together. The other issue she has is when she has a virus it can exxacerbate her sympotms. 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 She notes she did try the foam roll but felt it was aggravating on her low back PT-OP-F Manual Assessment Start: 02/06/23 10:34 Freq: Status: Active Protocol: Document 02/06/23 10:30 [facility] (Rec: 02/11/23 16:02 [facility] [id number]) Manual Assessments Soft Tissue Assessment Soft Tissue Mobility Assessment guarding along the gluteals and pt holds herself very tight in the gluteals, paraspinal guarding B and piriformis guarding, iliopsoas tightness R >L Joint Mobility Assessment Joint Mobility Assessment SI unlocks with ASLR raise, sacrum is held in a nutated and rotated left position Other Manual Assessments Other Manual Assessments posterior pelvic tilt of the sacrum, hamstring tightness in standing keeps pt in a posterior pelvic tilt position PT-OP-J Posture/Palpation/Skin Start: 02/06/23 10:34 Freq: Status: Active Protocol: Document 02/06/23 10:30 [facility] (Rec: 02/11/23 16:02 [facility] [id number]) Posture Evaluation Comments Posture Comments posterior pelvic tilt with gluteal guarding Palpation Assessment Location left sacral BARBY Palpation Findings Soft Tissue Tightness,Muscle Guarding,Tenderness PT-OP-K Range of Motion Start: 02/11/23 16:02 Freq: Status: Active Protocol: Document 02/06/23 10:30 [facility] (Rec: 02/11/23 16:04 [facility] [id number]) Hip Goniometric Range of Motion Hip Right Hip ROM WFL No Testing Position Supine Flexion w/Knee Flexed 100 Straight Leg Raise 55 Internal Rotation 10 External Rotation 35 Comments + brenna test for iliopsoas rightness R>L left Hip ROM WFL No Testing Position Supine Flexion w/Knee Flexed 100 Straight Leg Raise 50 Internal Rotation 5 External Rotation 30 Comments + brenna test for iliopsoas tightness Hip ROM Limitations Hip ROM Limitations Soft Tissue Tightness Comments IR limited and piriformis tightness L>R PT-OP-M Strength Start: 02/06/23 10:34 Freq: Status: Active Protocol: Document 02/06/23 10:30 [facility] (Rec: 02/11/23 16:02 [facility] [id number]) Trunk Strength Trunk Manual Muscle Testing Testing Position Supine Flexion 3 Fair Core Stabilization decreased core stabilization and TA activation PT-OP-Q Treatments Start: 02/06/23 10:34 Freq: Status: Active Protocol: Document 04/17/23 15:03 [facility] (Rec: 04/17/23 16:07 [facility] [id number]) Manual Therapy Treatment Soft Tissue Mobilization lumbar parapsinal release Comments worked bilaterally on releasing the paraspinals bilaterally, right greater than left sided tightness Right side QL release Comments right QL is much tighter than left and may be contributing to right leg being shorter MFR for the left piriformis Body Position Prone Comments not as much tenderness today along the left of the sacrum Manual Techniques sacral decompression Body Position Prone Comments worked on sacral decompression and sacral counter nutation x 5 reps with MET manual iliopsoas stretch in brenna test position Comments hold 1-2 min each leg with fascial release to the quad with stretch PT-OP-T Assessment and Plan Start: 02/06/23 10:34 Freq: Status: Active Protocol: Document 04/17/23 15:03 [facility] (Rec: 04/17/23 16:07 [facility] [id number]) Physical Therapy Assessment Assessment Summary Assessment Nusrat was tighter today but released well and is not as locked up in her hip. Her hip IR in prone is better with more ROM. Hamstring length is also improving Physical Therapy Plan Frequency and Duration Frequency of Treatment 2x/Week Duration of treatment (weeks) 12 Plan of Care Start Date 02/06/23 Plan of Care End Date 05/01/23 Next Visit Focus/Plan Next Note Type Treatment Note Next Visit Plan work on hip rotation stretching next visit and lateral hip stability
--- NOTE | 2023-04-25 09:49 | PT.OTN ---
Current Diagnoses Stiffness of unspecified hip, not elsewhere classified (04/25/23) Sacrococcygeal disorders, not elsewhere classified (04/25/23) Radiculopathy, sacral and sacrococcygeal region (04/25/23) Pelvic and perineal pain (04/25/23) Physical Therapy Treatment Note PT-OP-A Visit Information Start: 02/06/23 10:34 Freq: Status: Active Protocol: Document 04/25/23 08:51 [facility] (Rec: 04/25/23 09:49 [facility] [id number]) Out-Patient Physical Therapy Visit Information Visit Information Visit Type Treatment Note Visit Start Time 08:51 Visit Stop Time 09:40 Total Visit Minutes 49 Visit Number 7 PT-OP-B Current Condition Start: 02/06/23 10:34 Freq: Status: Active Protocol: Document 02/06/23 10:37 [facility] (Rec: 02/06/23 11:17 [facility] [id number]) Current Condition History of Current Condition Onset Date chronic over 15 years Current Complaints left tailbone and left buttock pain History of Current Condition She describes the pain as to the left of the tailbone type pain that comes and goes that has been going on for approx 15 years since she gave to Will. Once it is aggravated it is horrible pain and it lasts from 2 days. The pain will radiate from her left buttock down the back of her leg to her ankle. She describes the pain a nausea pain and there is swelling and tightness. Things like a road trip would aggravate it. 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 hx of right knee ACL rupture and LCL so her muscles in her right quad are holding it together. The other issue she has is when she has a virus it can exxacerbate her sympotms. 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 Her ITB feels tight on the right and she feels this happened when she fell onto her knee Patient Reported Progress Improving PT-OP-F Manual Assessment Start: 02/06/23 10:34 Freq: Status: Active Protocol: Document 02/06/23 10:30 [facility] (Rec: 02/11/23 16:02 [facility] [id number]) Manual Assessments Soft Tissue Assessment Soft Tissue Mobility Assessment guarding along the gluteals and pt holds herself very tight in the gluteals, paraspinal guarding B and piriformis guarding, iliopsoas tightness R >L Joint Mobility Assessment Joint Mobility Assessment SI unlocks with ASLR raise, sacrum is held in a nutated and rotated left position Other Manual Assessments Other Manual Assessments posterior pelvic tilt of the sacrum, hamstring tightness in standing keeps pt in a posterior pelvic tilt position PT-OP-J Posture/Palpation/Skin Start: 02/06/23 10:34 Freq: Status: Active Protocol: Document 02/06/23 10:30 [facility] (Rec: 02/11/23 16:02 [facility] [id number]) Posture Evaluation Comments Posture Comments posterior pelvic tilt with gluteal guarding Palpation Assessment Location left sacral BARBY Palpation Findings Soft Tissue Tightness,Muscle Guarding,Tenderness PT-OP-K Range of Motion Start: 02/11/23 16:02 Freq: Status: Active Protocol: Document 02/06/23 10:30 [facility] (Rec: 02/11/23 16:04 [facility] [id number]) Hip Goniometric Range of Motion Hip Right Hip ROM WFL No Testing Position Supine Flexion w/Knee Flexed 100 Straight Leg Raise 55 Internal Rotation 10 External Rotation 35 Comments + brenna test for iliopsoas rightness R>L left Hip ROM WFL No Testing Position Supine Flexion w/Knee Flexed 100 Straight Leg Raise 50 Internal Rotation 5 External Rotation 30 Comments + brenna test for iliopsoas tightness Hip ROM Limitations Hip ROM Limitations Soft Tissue Tightness Comments IR limited and piriformis tightness L>R PT-OP-M Strength Start: 02/06/23 10:34 Freq: Status: Active Protocol: Document 02/06/23 10:30 [facility] (Rec: 02/11/23 16:02 [facility] [id number]) Trunk Strength Trunk Manual Muscle Testing Testing Position Supine Flexion 3 Fair Core Stabilization decreased core stabilization and TA activation PT-OP-Q Treatments Start: 02/06/23 10:34 Freq: Status: Active Protocol: Document 04/25/23 08:51 [facility] (Rec: 04/25/23 09:49 [facility] [id number]) Therapeutic Exercises Supine Exercises 1/2 foam roll stretch Comments work in horizontal as well as vertical positions with foam roll hip flexor stretch Side bilateral Reps/Minutes 1-2 reps holding at least 30 seconds Comments in brenna test position Manual Therapy Treatment Soft Tissue Mobilization left obturator internus release Comments worked in right sidelying to release the left OI MFR for the left piriformis Body Position Prone Comments not as much tenderness today along the left of the sacrum Manual Techniques manual hamstring stretch Comments hold x 2 min B manual iliopsoas stretch in brenna test position Comments hold 1-2 min each leg with fascial release to the quad with stretch MET right posterior innominant Reps/Duration x 5 reps Comments right leg shorter in supine PT-OP-T Assessment and Plan Start: 02/06/23 10:34 Freq: Status: Active Protocol: Document 04/25/23 08:51 [facility] (Rec: 04/25/23 09:49 [facility] [id number]) Physical Therapy Assessment Goals 3 Impairment Decreased hip ROM with IR on the left being the most tight as compared to the right. Piriformis tightness and guarding on the left. 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 Pt was shown 1/2 foam roll stretching today for thoracic spine and she tolerated this well today. She is very tight in the anterior chest and is not able to lay with hands resting on the floor for her stretch . Nusrat is working on releasing at her sitting bones now and is much more aware of her posture. She would benefit from continued PT Physical Therapy Plan Frequency and Duration Frequency of Treatment 2x/Week Duration of treatment (weeks) 12 Plan of Care Start Date 04/25/23 Plan of Care End Date 07/18/23 Next Visit Focus/Plan Next Note Type Treatment Note Next Visit Plan begin working on pelvic floor isolations next visit without gluteal tightening
--- NOTE | 2023-04-25 09:50 | PT.OPPOC ---
Physical, Occupational & Speech Therapy At [facility] Current Diagnoses Stiffness of unspecified hip, not elsewhere classified (04/25/23) Sacrococcygeal disorders, not elsewhere classified (04/25/23) Radiculopathy, sacral and sacrococcygeal region (04/25/23) Pelvic and perineal pain (04/25/23) Visit Care Team Role Provider Type Ashutosh Le MD Attending Provider Physician Family Provider Primary Care Provider Referring Provider Specialty: Family Practice Address: [address] [place] [address], [facility] Email: [email or web address] Plan Of Care PT-OP-T Assessment and Plan Start: 02/06/23 10:34 Freq: Status: Active Protocol: Document 04/25/23 08:51 [facility] (Rec: 04/25/23 09:49 [facility] [id number]) Physical Therapy Assessment Goals 3 Impairment Decreased hip ROM with IR on the left being the most tight as compared to the right. Piriformis tightness and guarding on the left. 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 Pt was shown 1/2 foam roll stretching today for thoracic spine and she tolerated this well today. She is very tight in the anterior chest and is not able to lay with hands resting on the floor for her stretch . Nusrat is working on releasing at her sitting bones now and is much more aware of her posture. She would benefit from continued PT Physical Therapy Plan Frequency and Duration Frequency of Treatment 2x/Week Duration of treatment (weeks) 12 Plan of Care Start Date 04/25/23 Plan of Care End Date 07/18/23 Next Visit Focus/Plan Next Note Type Treatment Note Next Visit Plan begin working on pelvic floor isolations next visit without gluteal tightening Plan of Care Dates Plan of Care Start Date 04/25/23 Plan of Care End Date 07/18/23 Electronically Signed by: Debby Porter, PT 04/25/23 0950 If you are in agreement with this Plan of Care, please return a signed and dated copy. I have reviewed this Plan of Care and certify that the skilled therapy services above are required to meet the patient?s needs. Physician Signature Date Printed Name and Credentials Clinical Instructor Signature Printed Name and Credentials
--- NOTE | 2023-05-03 16:14 | PT.OTN ---
Current Diagnoses Stiffness of unspecified hip, not elsewhere classified (05/03/23) Sacrococcygeal disorders, not elsewhere classified (05/03/23) Radiculopathy, sacral and sacrococcygeal region (05/03/23) Pelvic and perineal pain (05/03/23) Physical Therapy Treatment Note PT-OP-A Visit Information Start: 02/06/23 10:34 Freq: Status: Active Protocol: Document 05/03/23 12:32 [facility] (Rec: 05/03/23 13:17 [facility] [id number]) Out-Patient Physical Therapy Visit Information Visit Information Visit Type Treatment Note Visit Start Time 12:30 Visit Stop Time 13:15 Total Visit Minutes 45 Visit Number 8 PT-OP-B Current Condition Start: 02/06/23 10:34 Freq: Status: Active Protocol: Document 02/06/23 10:37 [facility] (Rec: 02/06/23 11:17 [facility] [id number]) Current Condition History of Current Condition Onset Date chronic over 15 years Current Complaints left tailbone and left buttock pain History of Current Condition She describes the pain as to the left of the tailbone type pain that comes and goes that has been going on for approx 15 years since she gave to Will. Once it is aggravated it is horrible pain and it lasts from 2 days. The pain will radiate from her left buttock down the back of her leg to her ankle. She describes the pain a nausea pain and there is swelling and tightness. Things like a road trip would aggravate it. 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 hx of right knee ACL rupture and LCL so her muscles in her right quad are holding it together. The other issue she has is when she has a virus it can exxacerbate her sympotms. 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 Functional Limitations- Work/School limited with sitting duration due to pain PT-OP-C Subjective Start: 02/06/23 10:34 Freq: Status: Active Protocol: Document 05/03/23 12:32 [facility] (Rec: 05/03/23 13:17 [facility] [id number]) OP-PT Subjective Patient Comments Patient Comments She is feeling a little tight if she stands too long that when she will get the pain PT-OP-F Manual Assessment Start: 02/06/23 10:34 Freq: Status: Active Protocol: Document 02/06/23 10:30 [facility] (Rec: 02/11/23 16:02 [facility] [id number]) Manual Assessments Soft Tissue Assessment Soft Tissue Mobility Assessment guarding along the gluteals and pt holds herself very tight in the gluteals, paraspinal guarding B and piriformis guarding, iliopsoas tightness R >L Joint Mobility Assessment Joint Mobility Assessment SI unlocks with ASLR raise, sacrum is held in a nutated and rotated left position Other Manual Assessments Other Manual Assessments posterior pelvic tilt of the sacrum, hamstring tightness in standing keeps pt in a posterior pelvic tilt position PT-OP-J Posture/Palpation/Skin Start: 02/06/23 10:34 Freq: Status: Active Protocol: Document 02/06/23 10:30 [facility] (Rec: 02/11/23 16:02 [facility] [id number]) Posture Evaluation Comments Posture Comments posterior pelvic tilt with gluteal guarding Palpation Assessment Location left sacral BARBY Palpation Findings Soft Tissue Tightness,Muscle Guarding,Tenderness PT-OP-K Range of Motion Start: 02/11/23 16:02 Freq: Status: Active Protocol: Document 02/06/23 10:30 [facility] (Rec: 02/11/23 16:04 [facility] [id number]) Hip Goniometric Range of Motion Hip Right Hip ROM WFL No Testing Position Supine Flexion w/Knee Flexed 100 Straight Leg Raise 55 Internal Rotation 10 External Rotation 35 Comments + brenna test for iliopsoas rightness R>L left Hip ROM WFL No Testing Position Supine Flexion w/Knee Flexed 100 Straight Leg Raise 50 Internal Rotation 5 External Rotation 30 Comments + brenna test for iliopsoas tightness Hip ROM Limitations Hip ROM Limitations Soft Tissue Tightness Comments IR limited and piriformis tightness L>R PT-OP-M Strength Start: 02/06/23 10:34 Freq: Status: Active Protocol: Document 02/06/23 10:30 [facility] (Rec: 02/11/23 16:02 [facility] [id number]) Trunk Strength Trunk Manual Muscle Testing Testing Position Supine Flexion 3 Fair Core Stabilization decreased core stabilization and TA activation PT-OP-Q Treatments Start: 02/06/23 10:34 Freq: Status: Active Protocol: Document 05/03/23 12:32 [facility] (Rec: 05/03/23 13:17 [facility] [id number]) Therapeutic Exercises Supine Exercises supine piriformis stretch with opp leg straight Side bilateral Reps/Minutes 1-2 reps holding at least 30 sec Comments cues to pull knee across the chest Sidelying Exercises clam shells Reps/Minutes 3 x 10 reps PT-OP-T Assessment and Plan Start: 02/06/23 10:34 Freq: Status: Active Protocol: Document 05/03/23 12:32 [facility] (Rec: 05/03/23 13:17 [facility] [id number]) Physical Therapy Assessment Goals 3 Impairment Decreased hip ROM with IR on the left being the most tight as compared to the right. Piriformis tightness and guarding on the left. Prison Goal (LTG) Nusrat demonstrates improved hip ROM on the left to be equal to the right good progress LTG Duration 12 weeks 2 Impairment Poor postural habits with pt standing with gluteals clenched and in a posterior pelvic tilt position Short Term Goal (STG) Nusrat is educated on seating the femoral heads in standing to reduce tone of the gluteals and reduce pain GOAL MET STG Duration 4 weeks Land Surveyor Manager Goal (LTG) Nusrat is able to applications intern neutral spine and relaxed gluteals Good progress LTG Duration 12 weeks 1 Impairment left sided sacral and coccyx pain rated 8/10 made worse with sitting Prison Goal (LTG) Nusrat reports a overall reduction in pain and is able to sit for a hour or longer duration Nusrat notes she is seeing improvements and sciatic pain has not been as constant and is more intermittent LTG Duration 12 weeks Assessment Summary Assessment Nusrat is making good progress , hamstring length is improved . I added in pelvic floor isometrics and clam shells to help with stabilization toay Physical Therapy Plan Frequency and Duration Frequency of Treatment 2x/Week Duration of treatment (weeks) 12 Plan of Care Start Date 04/25/23 Plan of Care End Date 07/18/23 Therapeutic Interventions Therapeutic Interventions Home Exercise Program,Joint Mobilizations,Manual Therapy, Neuromuscular Re-education, Patient/Caregiver Education, Self-Care/Home Management,Soft Tissue Mobilization, Therapeutic Exercises Next Visit Focus/Plan Next Note Type Treatment Note Next Visit Plan recheck in with pelvic floor contractions and clam shells next visit, sacral release MFR
--- NOTE | 2023-05-10 15:00 | PT.OTN ---
Current Diagnoses Stiffness of unspecified hip, not elsewhere classified (05/10/23) Sacrococcygeal disorders, not elsewhere classified (05/10/23) Radiculopathy, sacral and sacrococcygeal region (05/10/23) Pelvic and perineal pain (05/10/23) Physical Therapy Treatment Note PT-OP-A Visit Information Start: 02/06/23 10:34 Freq: Status: Active Protocol: Document 05/10/23 09:30 [facility] (Rec: 05/10/23 13:45 [facility] [id number]) Out-Patient Physical Therapy Visit Information Visit Information Visit Type Treatment Note Visit Start Time 09:30 Visit Stop Time 10:15 Total Visit Minutes 45 Visit Number 9 Evaluation Information Evaluation Date 02/06/23 PT-OP-B Current Condition Start: 02/06/23 10:34 Freq: Status: Active Protocol: Document 02/06/23 10:37 [facility] (Rec: 02/06/23 11:17 [facility] [id number]) Current Condition History of Current Condition Onset Date chronic over 15 years Current Complaints left tailbone and left buttock pain History of Current Condition She describes the pain as to the left of the tailbone type pain that comes and goes that has been going on for approx 15 years since she gave to Will. Once it is aggravated it is horrible pain and it lasts from 2 days. The pain will radiate from her left buttock down the back of her leg to her ankle. She describes the pain a nausea pain and there is swelling and tightness. Things like a road trip would aggravate it. 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 hx of right knee ACL rupture and LCL so her muscles in her right quad are holding it together. The other issue she has is when she has a virus it can exxacerbate her sympotms. 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 Functional Limitations- Work/School limited with sitting duration due to pain PT-OP-C Subjective Start: 02/06/23 10:34 Freq: Status: Active Protocol: Document 05/10/23 09:30 [facility] (Rec: 05/10/23 10:16 [facility] [id number]) OP-PT Subjective Patient Comments Patient Comments pt notes she felt really sore after sitting at a [email or web address] concert yesterday, no sciatic symptoms today though PT-OP-F Manual Assessment Start: 02/06/23 10:34 Freq: Status: Active Protocol: Document 02/06/23 10:30 [facility] (Rec: 02/11/23 16:02 [facility] [id number]) Manual Assessments Soft Tissue Assessment Soft Tissue Mobility Assessment guarding along the gluteals and pt holds herself very tight in the gluteals, paraspinal guarding B and piriformis guarding, iliopsoas tightness R >L Joint Mobility Assessment Joint Mobility Assessment SI unlocks with ASLR raise, sacrum is held in a nutated and rotated left position Other Manual Assessments Other Manual Assessments posterior pelvic tilt of the sacrum, hamstring tightness in standing keeps pt in a posterior pelvic tilt position PT-OP-J Posture/Palpation/Skin Start: 02/06/23 10:34 Freq: Status: Active Protocol: Document 02/06/23 10:30 [facility] (Rec: 02/11/23 16:02 [facility] [id number]) Posture Evaluation Comments Posture Comments posterior pelvic tilt with gluteal guarding Palpation Assessment Location left sacral BARBY Palpation Findings Soft Tissue Tightness,Muscle Guarding,Tenderness PT-OP-K Range of Motion Start: 02/11/23 16:02 Freq: Status: Active Protocol: Document 02/06/23 10:30 [facility] (Rec: 02/11/23 16:04 [facility] [id number]) Hip Goniometric Range of Motion Hip Right Hip ROM WFL No Testing Position Supine Flexion w/Knee Flexed 100 Straight Leg Raise 55 Internal Rotation 10 External Rotation 35 Comments + brenna test for iliopsoas rightness R>L left Hip ROM WFL No Testing Position Supine Flexion w/Knee Flexed 100 Straight Leg Raise 50 Internal Rotation 5 External Rotation 30 Comments + brenna test for iliopsoas tightness Hip ROM Limitations Hip ROM Limitations Soft Tissue Tightness Comments IR limited and piriformis tightness L>R PT-OP-M Strength Start: 02/06/23 10:34 Freq: Status: Active Protocol: Document 02/06/23 10:30 [facility] (Rec: 02/11/23 16:02 [facility] [id number]) Trunk Strength Trunk Manual Muscle Testing Testing Position Supine Flexion 3 Fair Core Stabilization decreased core stabilization and TA activation PT-OP-Q Treatments Start: 02/06/23 10:34 Freq: Status: Active Protocol: Document 05/10/23 09:30 [facility] (Rec: 05/10/23 10:16 [facility] [id number]) Therapeutic Exercises Supine Exercises TA with SLR Reps/Minutes x 10 reps TA with march Comments able to alternate marches each side Sidelying Exercises clam shells Reps/Minutes 3 x 10 reps Manual Therapy Treatment Soft Tissue Mobilization MFR for the left piriformis Body Position Prone Comments not as much tenderness today along the left of the sacrum Manual Techniques manual hamstring stretch Comments hold x 2 min B sacral decompression Body Position Prone Comments worked on sacral decompression and sacral counter nutation x 5 reps with MET manual iliopsoas stretch in brenna test position Comments hold 1-2 min each leg with fascial release to the quad with stretch MET right posterior innominant Reps/Duration x 5 reps Comments right leg shorter in supine PT-OP-T Assessment and Plan Start: 02/06/23 10:34 Freq: Status: Active Protocol: Document 05/10/23 09:30 [facility] (Rec: 05/10/23 10:16 [facility] [id number]) Physical Therapy Assessment Goals 3 Impairment Decreased hip ROM with IR on the left being the most tight as compared to the right. Piriformis tightness and guarding on the left. Yard Motor Operator Goal (LTG) Nusrat demonstrates improved hip ROM on the left to be equal to the right good progress LTG Duration 12 weeks 2 Impairment Poor postural habits with pt standing with gluteals clenched and in a posterior pelvic tilt position Short Term Goal (STG) Nusrat is educated on seating the femoral heads in standing to reduce tone of the gluteals and reduce pain GOAL MET STG Duration 4 weeks Skilled Nursing Goal (LTG) Nusrat is able to manager of information neutral spine and relaxed gluteals Good progress LTG Duration 12 weeks 1 Impairment left sided sacral and coccyx pain rated 8/10 made worse with sitting Yard Motor Operator Goal (LTG) Nusrat reports a overall reduction in pain and is able to sit for a hour or longer duration Nusrat notes she is seeing improvements and sciatic pain has not been as constant and is more intermittent LTG Duration 12 weeks Assessment Summary Assessment Nusrat is tolerating her stabilization exercises well and was able to recruit her pelvic floor in prone today without gluteal activation. She still has discomfort after sitting and has a tendency for left sided piriformis tightness. I have encouraged her to continue with her home stretching program as well as stabilization exercises Physical Therapy Plan Frequency and Duration Frequency of Treatment 2x/Week Duration of treatment (weeks) 12 Plan of Care Start Date 04/25/23 Plan of Care End Date 07/18/23 Therapeutic Interventions Therapeutic Interventions Home Exercise Program,Joint Mobilizations,Manual Therapy, Neuromuscular Re-education, Patient/Caregiver Education, Self-Care/Home Management,Soft Tissue Mobilization, Therapeutic Exercises Next Visit Focus/Plan Next Note Type Treatment Note Next Visit Plan review sitting posture next visit and trial of miracle balls to help release posterior gluteal tension
--- NOTE | 2023-05-16 11:24 | PT.OTN ---
Current Diagnoses Stiffness of unspecified hip, not elsewhere classified (05/16/23) Sacrococcygeal disorders, not elsewhere classified (05/16/23) Radiculopathy, sacral and sacrococcygeal region (05/16/23) Pelvic and perineal pain (05/16/23) Physical Therapy Treatment Note PT-OP-A Visit Information Start: 02/06/23 10:34 Freq: Status: Active Protocol: Document 05/16/23 10:30 [facility] (Rec: 05/16/23 11:17 [facility] [id number]) Out-Patient Physical Therapy Visit Information Visit Information Visit Type Treatment Note Visit Start Time 10:30 Visit Stop Time 11:15 Total Visit Minutes 45 Visit Number 10 PT-OP-B Current Condition Start: 02/06/23 10:34 Freq: Status: Active Protocol: Document 02/06/23 10:37 [facility] (Rec: 02/06/23 11:17 [facility] [id number]) Current Condition History of Current Condition Onset Date chronic over 15 years Current Complaints left tailbone and left buttock pain History of Current Condition She describes the pain as to the left of the tailbone type pain that comes and goes that has been going on for approx 15 years since she gave to Will. Once it is aggravated it is horrible pain and it lasts from 2 days. The pain will radiate from her left buttock down the back of her leg to her ankle. She describes the pain a nausea pain and there is swelling and tightness. Things like a road trip would aggravate it. 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 hx of right knee ACL rupture and LCL so her muscles in her right quad are holding it together. The other issue she has is when she has a virus it can exxacerbate her sympotms. 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 PT-OP-F Manual Assessment Start: 02/06/23 10:34 Freq: Status: Active Protocol: Document 02/06/23 10:30 [facility] (Rec: 02/11/23 16:02 [facility] [id number]) Manual Assessments Soft Tissue Assessment Soft Tissue Mobility Assessment guarding along the gluteals and pt holds herself very tight in the gluteals, paraspinal guarding B and piriformis guarding, iliopsoas tightness R >L Joint Mobility Assessment Joint Mobility Assessment SI unlocks with ASLR raise, sacrum is held in a nutated and rotated left position Other Manual Assessments Other Manual Assessments posterior pelvic tilt of the sacrum, hamstring tightness in standing keeps pt in a posterior pelvic tilt position PT-OP-J Posture/Palpation/Skin Start: 02/06/23 10:34 Freq: Status: Active Protocol: Document 02/06/23 10:30 [facility] (Rec: 02/11/23 16:02 [facility] [id number]) Posture Evaluation Comments Posture Comments posterior pelvic tilt with gluteal guarding Palpation Assessment Location left sacral BARBY Palpation Findings Soft Tissue Tightness,Muscle Guarding,Tenderness PT-OP-K Range of Motion Start: 02/11/23 16:02 Freq: Status: Active Protocol: Document 02/06/23 10:30 [facility] (Rec: 02/11/23 16:04 [facility] [id number]) Hip Goniometric Range of Motion Hip Right Hip ROM WFL No Testing Position Supine Flexion w/Knee Flexed 100 Straight Leg Raise 55 Internal Rotation 10 External Rotation 35 Comments + brenna test for iliopsoas rightness R>L left Hip ROM WFL No Testing Position Supine Flexion w/Knee Flexed 100 Straight Leg Raise 50 Internal Rotation 5 External Rotation 30 Comments + brenna test for iliopsoas tightness Hip ROM Limitations Hip ROM Limitations Soft Tissue Tightness Comments IR limited and piriformis tightness L>R PT-OP-M Strength Start: 02/06/23 10:34 Freq: Status: Active Protocol: Document 02/06/23 10:30 [facility] (Rec: 02/11/23 16:02 [facility] [id number]) Trunk Strength Trunk Manual Muscle Testing Testing Position Supine Flexion 3 Fair Core Stabilization decreased core stabilization and TA activation PT-OP-Q Treatments Start: 02/06/23 10:34 Freq: Status: Active Protocol: Document 05/16/23 10:30 [facility] (Rec: 05/16/23 11:24 [facility] [id number]) Therapeutic Exercises Supine Exercises 1/2 foam roll stretch Supine Exercise Name HEP Other Exercises modified down dog using the plinth for hand hold Reps/Minutes hold 30 sec x 2 Comments cues to bend from the knees if it too much pull on hamstrings Manual Therapy Treatment Manual Techniques manual piriformis stretch Comments hold 1-2 minutes each side ITB stretch Comments right greater than left sided tightness manual hamstring stretch Comments hold x 2 min B sacral decompression Body Position Prone Comments worked on sacral decompression and sacral counter nutation x 5 reps with MET PT-OP-T Assessment and Plan Start: 02/06/23 10:34 Freq: Status: Active Protocol: Document 05/16/23 10:30 [facility] (Rec: 05/16/23 11:24 [facility] [id number]) Physical Therapy Assessment Goals 3 Impairment Decreased hip ROM with IR on the left being the most tight as compared to the right. Piriformis tightness and guarding on the left. Laser Beam Trim Operator Goal (LTG) Nusrat demonstrates improved hip ROM on the left to be equal to the right good progress LTG Duration 12 weeks 2 Impairment Poor postural habits with pt standing with gluteals clenched and in a posterior pelvic tilt position Short Term Goal (STG) Nusrat is educated on seating the femoral heads in standing to reduce tone of the gluteals and reduce pain GOAL MET STG Duration 4 weeks Laser Beam Trim Operator Goal (LTG) Nusrat is able to line maintainer section neutral spine and relaxed gluteals Good progress LTG Duration 12 weeks 1 Impairment left sided sacral and coccyx pain rated 8/10 made worse with sitting Skilled Nursing Goal (LTG) Nusrat reports a overall reduction in pain and is able to sit for a hour or longer duration Nusrat notes she is seeing improvements and sciatic pain has not been as constant and is more intermittent LTG Duration 12 weeks Assessment Summary Assessment Nusrat had driven to [employer] last weekend and her low back was tight after that trip. No sciatic symptoms or c/o coxxyx pain Physical Therapy Plan Frequency and Duration Frequency of Treatment 2x/Week Duration of treatment (weeks) 12 Plan of Care Start Date 04/25/23 Plan of Care End Date 07/18/23 Therapeutic Interventions Therapeutic Interventions Home Exercise Program,Joint Mobilizations,Manual Therapy, Neuromuscular Re-education, Patient/Caregiver Education, Self-Care/Home Management,Soft Tissue Mobilization, Therapeutic Exercises Next Visit Focus/Plan Next Note Type Treatment Note Next Visit Plan review sitting posture next visit and trial of miracle balls to help release posterior gluteal tension
--- NOTE | 2023-05-24 10:37 | PT.OTN ---
Current Diagnoses Stiffness of unspecified hip, not elsewhere classified (05/24/23) Sacrococcygeal disorders, not elsewhere classified (05/24/23) Radiculopathy, sacral and sacrococcygeal region (05/24/23) Pelvic and perineal pain (05/24/23) Physical Therapy Treatment Note PT-OP-A Visit Information Start: 02/06/23 10:34 Freq: Status: Active Protocol: Document 05/16/23 10:30 [facility] (Rec: 05/16/23 11:17 [facility] [id number]) Out-Patient Physical Therapy Visit Information Visit Information Visit Type Treatment Note Visit Start Time 10:30 Visit Stop Time 11:15 Total Visit Minutes 45 Visit Number 10 PT-OP-B Current Condition Start: 02/06/23 10:34 Freq: Status: Active Protocol: Document 02/06/23 10:37 [facility] (Rec: 02/06/23 11:17 [facility] [id number]) Current Condition History of Current Condition Onset Date chronic over 15 years Current Complaints left tailbone and left buttock pain History of Current Condition She describes the pain as to the left of the tailbone type pain that comes and goes that has been going on for approx 15 years since she gave to Will. Once it is aggravated it is horrible pain and it lasts from 2 days. The pain will radiate from her left buttock down the back of her leg to her ankle. She describes the pain a nausea pain and there is swelling and tightness. Things like a road trip would aggravate it. 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 hx of right knee ACL rupture and LCL so her muscles in her right quad are holding it together. The other issue she has is when she has a virus it can exxacerbate her sympotms. 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 Functional Limitations- Work/School limited with sitting duration due to pain PT-OP-C Subjective Start: 02/06/23 10:34 Freq: Status: Active Protocol: Document 11/02/23 09:38 [facility] (Rec: 05/24/23 10:35 [facility] [id number]) OP-PT Subjective Patient Comments Patient Comments Nusrat notes PT-OP-F Manual Assessment Start: 02/06/23 10:34 Freq: Status: Active Protocol: Document 02/06/23 10:30 [facility] (Rec: 02/11/23 16:02 [facility] [id number]) Manual Assessments Soft Tissue Assessment Soft Tissue Mobility Assessment guarding along the gluteals and pt holds herself very tight in the gluteals, paraspinal guarding B and piriformis guarding, iliopsoas tightness R >L Joint Mobility Assessment Joint Mobility Assessment SI unlocks with ASLR raise, sacrum is held in a nutated and rotated left position Other Manual Assessments Other Manual Assessments posterior pelvic tilt of the sacrum, hamstring tightness in standing keeps pt in a posterior pelvic tilt position PT-OP-J Posture/Palpation/Skin Start: 02/06/23 10:34 Freq: Status: Active Protocol: Document 02/06/23 10:30 [facility] (Rec: 02/11/23 16:02 [facility] [id number]) Posture Evaluation Comments Posture Comments posterior pelvic tilt with gluteal guarding Palpation Assessment Location left sacral BARBY Palpation Findings Soft Tissue Tightness,Muscle Guarding,Tenderness PT-OP-K Range of Motion Start: 02/11/23 16:02 Freq: Status: Active Protocol: Document 02/06/23 10:30 [facility] (Rec: 02/11/23 16:04 [facility] [id number]) Hip Goniometric Range of Motion Hip Right Hip ROM WFL No Testing Position Supine Flexion w/Knee Flexed 100 Straight Leg Raise 55 Internal Rotation 10 External Rotation 35 Comments + brenna test for iliopsoas rightness R>L left Hip ROM WFL No Testing Position Supine Flexion w/Knee Flexed 100 Straight Leg Raise 50 Internal Rotation 5 External Rotation 30 Comments + brenna test for iliopsoas tightness Hip ROM Limitations Hip ROM Limitations Soft Tissue Tightness Comments IR limited and piriformis tightness L>R PT-OP-M Strength Start: 02/06/23 10:34 Freq: Status: Active Protocol: Document 02/06/23 10:30 [facility] (Rec: 02/11/23 16:02 [facility] [id number]) Trunk Strength Trunk Manual Muscle Testing Testing Position Supine Flexion 3 Fair Core Stabilization decreased core stabilization and TA activation PT-OP-Q Treatments Start: 02/06/23 10:34 Freq: Status: Active Protocol: Document 05/24/23 09:38 [facility] (Rec: 05/24/23 10:35 [facility] [id number]) Therapeutic Exercises Supine Exercises wind shield wipers Reps/Minutes x 15 reps happy baby Reps/Minutes 1-2 reps holding at least 30 sec supine piriformis stretch with opp leg straight Side bilateral Reps/Minutes 1-2 reps holding at least 30 sec Comments cues to pull knee across the chest hip flexor stretch Side bilateral Reps/Minutes 1-2 reps holding at least 30 seconds Comments in brenna test position Other Exercises deion pose Reps/Minutes hold 1-2 minutes quadruped thoracic rotation Reps/Minutes x 10 reps quadruped sidebends Reps/Minutes x 10 reps modified down dog using the plinth for hand hold Reps/Minutes hold 30 sec x 2 Comments cues to bend from the knees if it too much pull on hamstrings cat cow Reps/Minutes x 10 reps Manual Therapy Treatment Soft Tissue Mobilization lumbar parapsinal release Comments worked bilaterally on releasing the paraspinals bilaterally, right greater than left sided tightness MFR for the left piriformis Body Position Prone Comments not as much tenderness today along the left of the sacrum Manual Techniques manual hamstring stretch Comments hold x 2 min B manual iliopsoas stretch in brenna test position Comments hold 1-2 min each leg with fascial release to the quad with stretch PT-OP-T Assessment and Plan Start: 02/06/23 10:34 Freq: Status: Active Protocol: Document 05/24/23 09:38 [facility] (Rec: 05/24/23 10:35 [facility] [id number]) Physical Therapy Assessment Assessment Summary Assessment Nusrat is doing well without her sciatic symptoms. She can feels things get tight but has been able to stay out of the nerve pain. I did show her the miracle balls today for self release of her sacrum and she liked these and thinks she has some at home Physical Therapy Plan Frequency and Duration Frequency of Treatment 2x/Week Duration of treatment (weeks) 12 Plan of Care Start Date 04/25/23 Plan of Care End Date 07/18/23 Therapeutic Interventions Therapeutic Interventions Home Exercise Program,Joint Mobilizations,Manual Therapy, Neuromuscular Re-education, Patient/Caregiver Education, Self-Care/Home Management,Soft Tissue Mobilization, Therapeutic Exercises Next Visit Focus/Plan Next Note Type Treatment Note Next Visit Plan review sitting posture next visit and trial of miracle balls to help release posterior gluteal tension
--- NOTE | 2023-05-31 14:14 | PT.OTN ---
Current Diagnoses Stiffness of unspecified hip, not elsewhere classified (05/31/23) Sacrococcygeal disorders, not elsewhere classified (05/31/23) Radiculopathy, sacral and sacrococcygeal region (05/31/23) Pelvic and perineal pain (05/31/23) Physical Therapy Treatment Note PT-OP-A Visit Information Start: 02/06/23 10:34 Freq: Status: Active Protocol: Document 05/31/23 09:30 [facility] (Rec: 05/31/23 14:14 [facility] [id number]) Out-Patient Physical Therapy Visit Information Visit Information Visit Type Treatment Note Visit Start Time 09:35 Visit Stop Time 10:20 Total Visit Minutes 45 Visit Number 12 PT-OP-B Current Condition Start: 02/06/23 10:34 Freq: Status: Active Protocol: Document 02/06/23 10:37 [facility] (Rec: 02/06/23 11:17 [facility] [id number]) Current Condition History of Current Condition Onset Date chronic over 15 years Current Complaints left tailbone and left buttock pain History of Current Condition She describes the pain as to the left of the tailbone type pain that comes and goes that has been going on for approx 15 years since she gave to Will. Once it is aggravated it is horrible pain and it lasts from 2 days. The pain will radiate from her left buttock down the back of her leg to her ankle. She describes the pain a nausea pain and there is swelling and tightness. Things like a road trip would aggravate it. 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 hx of right knee ACL rupture and LCL so her muscles in her right quad are holding it together. The other issue she has is when she has a virus it can exxacerbate her sympotms. 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 She is feeling tight in her left SI and would like a gait eval today PT-OP-F Manual Assessment Start: 02/06/23 10:34 Freq: Status: Active Protocol: Document 02/06/23 10:30 [facility] (Rec: 02/11/23 16:02 [facility] [id number]) Manual Assessments Soft Tissue Assessment Soft Tissue Mobility Assessment guarding along the gluteals and pt holds herself very tight in the gluteals, paraspinal guarding B and piriformis guarding, iliopsoas tightness R >L Joint Mobility Assessment Joint Mobility Assessment SI unlocks with ASLR raise, sacrum is held in a nutated and rotated left position Other Manual Assessments Other Manual Assessments posterior pelvic tilt of the sacrum, hamstring tightness in standing keeps pt in a posterior pelvic tilt position PT-OP-J Posture/Palpation/Skin Start: 02/06/23 10:34 Freq: Status: Active Protocol: Document 02/06/23 10:30 [facility] (Rec: 02/11/23 16:02 [facility] [id number]) Posture Evaluation Comments Posture Comments posterior pelvic tilt with gluteal guarding Palpation Assessment Location left sacral BARBY Palpation Findings Soft Tissue Tightness,Muscle Guarding,Tenderness PT-OP-K Range of Motion Start: 02/11/23 16:02 Freq: Status: Active Protocol: Document 02/06/23 10:30 [facility] (Rec: 02/11/23 16:04 [facility] [id number]) Hip Goniometric Range of Motion Hip Right Hip ROM WFL No Testing Position Supine Flexion w/Knee Flexed 100 Straight Leg Raise 55 Internal Rotation 10 External Rotation 35 Comments + brenna test for iliopsoas rightness R>L left Hip ROM WFL No Testing Position Supine Flexion w/Knee Flexed 100 Straight Leg Raise 50 Internal Rotation 5 External Rotation 30 Comments + brenna test for iliopsoas tightness Hip ROM Limitations Hip ROM Limitations Soft Tissue Tightness Comments IR limited and piriformis tightness L>R PT-OP-M Strength Start: 02/06/23 10:34 Freq: Status: Active Protocol: Document 02/06/23 10:30 [facility] (Rec: 02/11/23 16:02 [facility] [id number]) Trunk Strength Trunk Manual Muscle Testing Testing Position Supine Flexion 3 Fair Core Stabilization decreased core stabilization and TA activation PT-OP-Q Treatments Start: 02/06/23 10:34 Freq: Status: Active Protocol: Document 05/31/23 09:30 [facility] (Rec: 05/31/23 14:14 [facility] [id number]) Therapeutic Exercises Other Exercises standing hip hikes Reps/Minutes x 10 each side Therapeutic Activity Therapeutic Activity gait on treadmill Reps/Minutes 5 min Comments gait was assessed on the treadmill and aleksandar has just a small amount of her left foot turning in slightly as she steps through. Manual Therapy Treatment Soft Tissue Mobilization MFR for the left piriformis Body Position Prone Comments tight and tender at the sacral attachments today Manual Techniques manual piriformis stretch Comments hold 1-2 minutes each side manual hamstring stretch Comments hold x 2 min B manual iliopsoas stretch in brenna test position Comments hold 1-2 min each leg with fascial release to the quad with stretch MET right posterior innominant Reps/Duration x 5 reps Comments right leg shorter in supine Aleksandar was shown how to do a self MET for home and given paperwork on it PT-OP-T Assessment and Plan Start: 02/06/23 10:34 Freq: Status: Active Protocol: Document 05/31/23 09:30 [facility] (Rec: 05/31/23 14:14 [facility] [id number]) Physical Therapy Assessment Goals 3 Impairment Decreased hip ROM with IR on the left being the most tight as compared to the right. Piriformis tightness and guarding on the left. 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 She does get tight easily and after walking on the left posterior buttocks and hip. I stress trying to get some decompressive stretches in per day and we also talked about adding in super feet arch supports. I did show she how to use MET for home for right posterior innominant rotation. At this point this was her last established PT visit with insurance. She will be discharged to a [facility] Physical Therapy Plan Discharge Physical Therapy Discharge Comments Pt has met her limit for PT from her insurance so will be discharged from PT at this time
== END 2023-08-06 15:07 | disposition home or self-care (01) ==
LOC: PHYS 09:30
PROVIDERS: Family Provider Family Medicine; PCP Family Medicine; Referring Provider Family Medicine; Visit Provider Family Medicine
DX: R10.2 Pelvic and perineal pain (principal); M54.18 Radiculopathy, sacral and sacrococcygeal region; M53.3 Sacrococcygeal disorders, not elsewhere classified; M25.659 Stiffness of unspecified hip, not elsewhere classified
CPT/HCPCS: 97110; 97140; 97161

== ENCOUNTER → 2023-07-06 13:32 | Outpatient (CLI) | payer OTHER, MEDICAID, SELFPAY ==
--- NOTE | 2023-07-06 | DI.MG.S_ITS ---
BILATERAL DIGITAL SCREENING MAMMOGRAM 3D/2D WITH CAD: 07/06/2023 CLINICAL: Routine screening. Comparison is made to exams dated: 05/22/2022 mammogram, 05/19/2021 mammogram, and 05/01/2020 mammogram - [facility]. There are scattered areas of fibroglandular density in both breasts (category b / 25%-50% glandular tissue). Current study was also evaluated with a Computer Aided Detection (CAD) system. No significant masses, calcifications, or other findings are seen in either breast. There has been no significant interval change. IMPRESSION: NEGATIVE There is no mammographic evidence of malignancy. A 1 year screening mammogram is recommended. Based on the Tyrer Cuzick model (a risk assessment model) the patient's lifetime risk is 11.0% and her 10 year risk is 3.6%. According to the ACR, ACS, and NCCN guidelines, an annual breast MRI exam along with mammogram is recommended if the patient's lifetime risk is 20% or greater. This exam was interpreted at Station ID: [id number]. NOTE: For mammograms, a report in lay terms will be sent to the patient. Approximately 15% of breast malignancies will not be visualized mammographically. In the management of a palpable breast mass, a negative mammogram must not discourage biopsy of a clinically suspicious lesion. Electronically Signed By: Ena Wilkins M.D., PH.D yenni/mitch:07/08/2023 14:54:24 copy to: ERICA FRANCISCO letter sent: Normal Exam ACR BI-RADS Category 1: Negative [id number]
== END ==
PROVIDERS: Family Provider Family Medicine; PCP Family Medicine; Referring Provider Family Medicine; Visit Provider Family Medicine
DX: Z12.31 Encounter for screening mammogram for malignant neoplasm of breast (principal)
CPT/HCPCS: 77063; 77067

== ENCOUNTER → 2023-11-21 10:46 | Outpatient (CLI) | payer OTHER, MEDICAID, SELFPAY ==
--- NOTE | 2023-11-21 10:47 | DI.RAD.S_ITS ---
PROCEDURE: FL BARIUM SWALLOW W SPEECH INDICATIONS: dysphagia COMPARISON: None. TECHNIQUE: Examination was conducted in conjunction with speech pathology per standard protocol. In the lateral projection, filming was performed of the patient swallowing. AP projection filming may also be performed with patient swallowing. COMPARISON: FINDINGS: Function: The oral preparatory phase appears normal, with proper containment. The subsequent oral propulsive phase, pharyngeal phase, and esophageal phase of swallowing also appear normal with all proffered substances. No laryngotracheal penetration or aspiration. No pathologic vallecular pooling. Moderate to severe esophageal dysmotility, with stasis of contrast in the midesophagus. Morphology: No cricopharyngeal bar is identified. No cervical esophageal webs. No Zenker's diverticulum. No strictures. IMPRESSION: No penetration or aspiration. Moderate to severe soft esophageal dysmotility. Dictated by: Arnav Beasley M.D. on 11/21/2023 at 13:02 Approved by: Arnav Beasley M.D. on 11/21/2023 at 13:03
--- NOTE | 2023-11-21 13:30 | ST.SWALLOW ---
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 Le Reason for Referral globus sensation; dysphagia Setting Setting Outpatient Care Patient Information Identification Type Name,Date of Patient History Pt was seen for a Modified Barium Swallow Study at the referral of Dr. Le. Pt was seen for a swallow screen and referral for MBSS was recommended. Pt c/o difficulty with swallowing solid foods such as dry/crusty bread, meats,etc. Pt reported that that solids get stuck (pointintg to sternal notch) and she feels a fullness that won't go down . She described needing to drink water right away or she will vomit undigested foods. Pt stated that this has been going on for approximately 10 years. Pt denied a medical history of GERD but noted that spicy foods and wine as well as stress with cause heartburn. Pt also denied head/neck injury or surgery or neurological diagnoses. Subjective Observations Pt was seated in the fluoroscopy chair with directions and procedures described for her. She indicated she understood and agreed to proceed. Patient Positioning Position View Lat-A/P Imaging Lateral View Textures Administered Trials Presented Thin Liquid via Spoon (IDDSI 0 ),Thin Liquid via Cup (IDDSI 0 ),Extremely Thick Liquid via Spoon (IDDSI 4),Regular (IDDSI 7) Barium Tablet Yes The IDDSI Framework Protocol: IDDSI.1 Oral Impairment Source: The Modified Barium Swallow Impairment Profile (MBSImP??) Lip Closure No labial escape Tongue Control During Bolus Hold Cohesive bolus between tongue to palatal seal Bolus Preparation/Mastication Timely & efficient chewing & mashing Bolus Transport/Lingual Motion Brisk tongue motion Oral Residue Complete oral clearance Initiation of Pharyngeal Swallow Bolus head in valleculae Additional Oral Impairment Observations OME and DKS were observed to be WNL. Mastication observed with rotary chew pattern. Good bolus formation, control and AP transition. Oral phase observed to be WNL Pharyngeal Impairment Source: The Modified Barium Swallow Impairment Profile (MBSImP??) Soft Palate Elevation No bolus between soft palate & pharyngeal wall Laryngeal Elevation Comp.sup.move.thyroid cart.w/ comp.approx.arytenoids to epiglot petiole Anterior Hyoid Excursion Complete anterior movement Epiglottic Movement Complete inversion Laryngeal Vestibular Closure Complete; no air/contrast in laryngeal vestibule Pharyngeal Stripping Wave Present - complete Pharyngoesophageal Segment Opening Complete distention & complete duration; no obstruction of flow Tongue Base Retraction Narrow column of contrast/air betwn tongue base & post. pharyngeal wall Pharyngeal Residue Trace residue within/on pharyngeal structures Location Valleculae Additional Pharyngeal Impairment Reduced base of tongue Observations retraction strength Normal hyolaryngeal elevation and movement and epiglottic inversion. No laryngeal penetration or tracheal aspiration observed Pharyngeal phase observed to be WNL A/P View Textures Administered Trials Presented Thin Liquid via Cup (IDDSI 0), Moderately Thick Liquid via Spoon (IDDSI 3),Regular (IDDSI 7) The IDDSI Framework Protocol: IDDSI.1 A/P View Observations Pharyngeal Contraction Complete Esophageal Clearance Upright Position Esophageal retention Vocal Fold Function Good Esophageal Function Poor Motility,Stasis Additional A-P Observations Initially when pt position changed from lateral to AP, there contrast remained in the esophagus. This cleared with water wash. Esophageal retention of solid/ cookie trial observed Liquids and barium tablet cleared esophagus as expected. At the end of the MBSS, the pt expressed discomfort from her sternum to her stomach. Clinical Impressions Dysphagia Type Esophageal Findings Esophageal dysmotility observed with pt describing discomfort. pt noted she experiences GERD s/sx with spicy foods, wine, and stress Pt reports regurgitation of undigested foods if she is unable to wash foods down with water quickly. GI referral recommended. Patient Appropriate for Therapy No Recommendations Diet Comments No diet change at this time Treatment Plan Recommended Referrals GI Consult
== END ==
PROVIDERS: Family Provider Family Medicine; PCP Family Medicine; Referring Provider Family Medicine; Visit Provider Family Medicine
DX: K22.4 Dyskinesia of esophagus (principal); R13.10 Dysphagia, unspecified
CPT/HCPCS: 74230; 92611

== ENCOUNTER → 2024-07-11 14:51 | Outpatient (CLI) | payer OTHER, MEDICAID, SELFPAY ==
--- NOTE | 2024-07-11 14:54 | DI.MG.S_ITS ---
BILATERAL DIGITAL SCREENING MAMMOGRAM 3D/2D WITH CAD: 07/11/2024 CLINICAL: Routine screening. Comparison is made to exams dated: 07/06/2023 mammogram, 05/22/2022 mammogram, and 05/19/2021 mammogram - [facility]. There are scattered areas of fibroglandular density (category b / 25%-50% glandular tissue). Current study was also evaluated with a Computer Aided Detection (CAD) system. No significant masses, calcifications, or other findings are seen in either breast. There has been no significant interval change. IMPRESSION: NEGATIVE There is no mammographic evidence of malignancy. A 1 year screening mammogram is recommended. Based on the Tyrer Cuzick model (a risk assessment model) the patient's lifetime risk is 10.8% and her 10 year risk is 3.8%. According to the ACR, ACS, and NCCN guidelines, an annual breast MRI exam along with mammogram is recommended if the patient's lifetime risk is 20% or greater. This exam was interpreted at Station ID: [id number]. NOTE: For mammograms, a report in lay terms will be sent to the patient. Approximately 15% of breast malignancies will not be visualized mammographically. In the management of a palpable breast mass, a negative mammogram must not discourage biopsy of a clinically suspicious lesion. Electronically Signed By: Arturo boykin/mitch:07/12/2024 09:44:47 copy to: ERICA FRANCISCO letter sent: Normal Exam ACR BI-RADS Category 1: Negative
== END ==
PROVIDERS: Family Provider Family Medicine; PCP Family Medicine; Referring Provider Family Medicine; Visit Provider Family Medicine
DX: Z12.31 Encounter for screening mammogram for malignant neoplasm of breast (principal)
CPT/HCPCS: 77063; 77067

== ENCOUNTER → 2024-10-15 15:50 | Outpatient (CLI) | payer OTHER, SELFPAY ==
[2024-10-15 16:04] LABS: Add Manual Diff / Slide Review NO; Basophils Absolute Auto 0 /uL (0-100); Basophils Percent Auto 0.2 % (0-2); Eosinophils Absolute Auto 0 /uL (0-450); Eosinophils Percent Auto 0.3 % (2-4); Hematocrit 46.1 % (36-46); Hemoglobin 15.4 g/dL (12.0-16.0); Lymphocytes Absolute Auto 600 /uL (1100-4500); Lymphocytes Percent Auto 4.6 % (25-40); Mean Corpuscular HGB Conc 33.4 % (30-36); Mean Corpuscular Hemoglobin 28.3 PG (26-34); Mean Corpuscular Volume 84.5 fL (80-100); Monocytes Absolute Auto 400 /uL (0-900); Monocytes Percent Auto 3.5 % (3-14); Neutrophils Absolute Auto 11500 /uL (1500-7000); Neutrophils Percent Auto 91.4 % (50-75); Platelet Count 204 X10^3/uL (150-400); Red Blood Cell Count 5.46 X10^6/uL (4.0-5.2); Red Cell Distribution Width 13.7 % (11.6-14.8); White Blood Cell Count 12.6 X10^3/uL (4.5-11.0)
[2024-10-15 16:19] LABS: Alanine Aminotransferase 36 IU/L (<35); Albumin 4.9 g/dL (3.5-5.0); Albumin Globulin Ratio 1.5 (1.0-2.8); Alkaline Phosphatase 70 U/L (38-126); Aspartate Aminotransferase 35 IU/L (14-36); BUN Creatinine Ratio 22.9 (6-22); Bilirubin Total 0.9 mg/dL (0.2-1.3); Blood Urea Nitrogen 19 mg/dL (7-17); Calcium 9.4 mg/dL (8.4-10.2); Carbon Dioxide 21 mmol/L (22-32); Chloride 104 mmol/L (98-107); Estimated Glomerular Filt Rate > 60 mL/min (>60); Globulin 3.2 g/dL (1.7-4.1); Glucose 113 mg/dL (70-100); HEMOLYSIS < 15 (0-50); Potassium 4.2 mmol/L (3.4-5.1); Sodium 138 mmol/L (137-145); Total Protein 8.1 g/dL (6.3-8.2)
[2024-10-15 16:58] LABS: TSH w/ Reflex to FT4 0.77 uIU/mL (0.47-4.68)
== END ==
LOC: LAB 15:51
PROVIDERS: Family Provider Family Medicine; PCP Family Medicine; Referring Provider Nurse Practitioner Family; Visit Provider Nurse Practitioner Family
DX: R00.2 Palpitations (principal)
CPT/HCPCS: 36415; 80053; 84443; 85025

== ENCOUNTER → 2024-11-03 10:22 | Outpatient (CLI) | payer OTHER, SELFPAY | PROVIDERS: Family Provider Family Medicine; PCP Family Medicine; Referring Provider Nurse Practitioner Family; Visit Provider Nurse Practitioner Family | DX: R00.2 Palpitations (principal); R42 Dizziness and giddiness; R06.02 Shortness of breath | CPT/HCPCS: 93242 ==

== ENCOUNTER → 2025-03-30 09:50 | Outpatient (CLI) | payer OTHER, SELFPAY ==
--- NOTE | 2025-03-30 09:52 | DI.CT.S_ITS ---
PROCEDURE: CT ABDOMEN PELVIS W CON INDICATIONS: Left lower abd pain with hx of diverticulosis TECHNIQUE: After the administration of intravenous contrast, axial sections acquired from the lung bases to the pubic symphysis. Coronal and sagittal reformats were performed. For radiation dose reduction, the following was used: automated exposure control, adjustment of mA and/or kV according to patient size. COMPARISON: None. FINDINGS: Image quality: Diagnostic. Lower Chest: No significant findings. ABDOMEN: Liver: No solid mass. Hepatic cyst measuring 3.9 cm. Gallbladder: No radiopaque gallstones or wall thickening. Biliary ducts: No biliary dilation. Pancreas: No ductal dilation. Spleen: Size is within normal limits. Adrenal Glands: No adrenal nodules. Kidneys and Ureters: No hydronephrosis. No solid mass. No complex renal cystic lesion which requires follow up. Stomach and Bowel: No diverticulitis. Thickening of the colon at the splenic flexure, (3/42). This could represent a colitis. There is somewhat prominent stool in the proximal and transverse colon. The appendix is not dilated. No small bowel obstruction. The stomach is within normal limits. Peritoneum: No abnormal intraperitoneal fluid. No free air. Ventral Wall: Tiny fat containing umbilical hernia. Abdominal Nodes: No retroperitoneal or mesenteric adenopathy by size criteria. Vessels: Aorta and inferior vena cava are normal in size. Mesenteric arteries are patent. Portal vein is patent. PELVIS: Pelvic Organs: Uterus is absent. Bladder: No bladder wall thickening. No stone. Pelvic Nodes: No enlarged lymph nodes. Miscellaneous: No inguinal hernias are seen. Bones: No aggressive osseous abnormality. IMPRESSION: 1. No diverticulitis. 2. Questionable colitis at the splenic flexure. 3. No fluid collection. No pneumoperitoneum. No small bowel obstruction. Normal appendix. Dictated by: Mike Chang M.D. on 03/30/2025 at 13:17 Approved by: Mike Chang M.D. on 03/30/2025 at 13:25
== END ==
PROVIDERS: Family Provider Family Medicine; PCP Family Medicine; Referring Provider Family Medicine; Visit Provider Family Medicine
DX: K57.90 Diverticulosis of intestine, part unspecified, without perforation or abscess without bleeding (principal); R10.31 Right lower quadrant pain; K76.89 Other specified diseases of liver
CPT/HCPCS: 74177; Q9967

== ENCOUNTER 2025-06-25 11:19 | Day surgery (SDC) | payer OTHER, SELFPAY ==
[2025-06-15 12:02] VITALS: BMI 27.4
--- NOTE | 2025-06-25 | PATH_ITS ---
[facility] Accession Number: [id number] No. of containers..01 Tissue . 01 Material submitted: . colon - SIGMOID LESION . 01 Diagnosis: SIGMOID COLON LESION, BIOPSY: Colonic mucosa with focal mucosal hyperplasia and nonspecific hemorrhage and congestion. Negative for active or microscopic colitis. Negative for granulomas, dysplasia or malignancy. Additional step sections examined. MRV 07/01/2025 1732 Local . 01 Electronically signed: . Yusef Colin MD, PhD, Pathologist NPI- [id number] . 01 Gross description: . Received in formalin with two identifiers and sigmoid lesion is a single perry soft tissue fragment, 0.3 cm in greatest dimension, submitted entirely in A1. ([id number]) /MRV 06/26/20251724 Local . 01 Pathologist provided ICD-10: K57.90, R10.31 . 01 CPT . 630161 Specimen Comment: A courtesy copy of this report has been sent to [facility] Pathology Performed at: [address] [address], [place], [place] [id number] MD Brigido Gee MD Phone: [phone]
--- NOTE | 2025-06-25 06:37 | PM.HP.IH.1 ---
History of Present Illness History of Present Illness Date Patient Seen: 06/25/25 Chief complaint: SDC Narrative: Presents for screening colonoscopy today. PFSH Medical History (Updated 06/25/25 @ 06:37 by Jordan Juárez MD) SVT (supraventricular tachycardia) Hypothyroidism Surgical History (Updated 05/25/18 @ 20:47 by Karen Clay) Status post laparoscopic supracervical hysterectomy (01/04/15) Status post breast reduction (~2012) Status post ovarian cystectomy (~1994) History of third molar tooth extraction (~1981) Social History (Updated 03/19/25 @ 12:32 by Davina Cope MA) marital status: number of children: 2 household members: spouse and children lives independently: Yes caregiver/support person: No housing: house pets and animals: No education level: college occupational status: employed current occupational exposures/hazards: No special yudi needs: No travel history: over 6 months ago sexual history: single partner since 1994 leisure activities: exercise, games, fishing, reading and volunteer work seatbelt use: always helmet use: Yes water heater temp set < 120 deg: Yes working smoke detector in home: Yes fire extinguisher in home: Yes carbon monox detector in home: Yes firearms in home: No do you feel safe at home: Yes Smoking Status: Never smoker second hand exposure: No alcohol intake: current substance use type: does not use during the past year weight has: remained stable well-balanced diet: daily or most days daily servings fruits/ve or more times/day caffeine: Yes (occasionally) eating out: other Type(s) of exercise: walking, bicycling, regular exercise and other Meds Home Medications and Allergies Home Medications ?Medication ?Instructions ?Recorded ?Confirmed ?Type multivitamin (Multiple Vitamins 1 tab PO QDAY ##0 06/06/17 05/04/25 History tablet) triamcinolone acetonide 0.1 % 1 applic topical BID #30 grams 11/21/24 05/04/25 Rx topical cream estradiol 0.01% (0.1 mg/gram) 1 g vaginal DAILY #42.5 grams 03/19/25 05/04/25 Rx vaginal cream (Estrace) Allergies Allergy/AdvReac Type Severity Reaction Status Date / Time meperidine Allergy Mild ITCH (NO Verified 05/04/25 08:45 RASH) Exam Narrative Exam Narrative: Const General: healthy appearing, comfortable and no acute distress Orientation: alert and oriented x3 HENMT Ears: hearing grossly normal bilaterally Eyes Visual Lisa: normal visual lisa by confrontation Conjunctivae: conjunctivae normal Sclera: sclerae normal EOM: EOM intact bilaterally Resp Effort & Inspection: normal respiratory effort and able to speak in complete sentences Cardio Rate: regular rate GI Palpation: soft (NT) Extrem General: no pedal edema and no calf tenderness Assessment & Plan Assessment and plan (1) Encounter for screening colonoscopy: Status: Acute (2) Colitis: Status: Acute Plan Plan colonoscopy, possible biopsy. The risks, benefits and options regarding the procedure were explained to the patient in detail. Risk discussion included but not limited to: bleeding, perforation, unable to reach cecum, missed lesion. The patient was encouraged to ask questions and they were answered to their satisfaction. The patient understands and is agreeable to proceed. Time-Based Coding :: [TOTAL MINUTES] spent with patient and on the chart (including review of chart, obtaining history, exam, reviewing outside data, placing orders, documenting exam and treatment plan, and counseling patient) on [DATE]. 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
[2025-06-25 11:56] VITALS: BP 131/82; PULSE 82; RESP 17; TEMP 36.7; O2SAT 98
[2025-06-25] MEDS: LACTATED RINGERS 1,000 ML 42 ML IV (12:11)
--- NOTE | 2025-06-25 14:52 | P.OP.COLON_ITS ---
Operative Date/Time/Diagnoses Date of procedure: 06/25/25 Time of procedure: 15:19 Pre-op diagnosis: Screening colon, CT scan with colitis at splenic flexure Post-op diagnosis: same Procedure & Clinicians Study performed: Screening colonoscopy with biopsy Same procedure(s) as scheduled: Yes Indications: 59yo F, screening colonoscopy, CT scan with colitis at splenic flexure Surgeon: Jordan Juárez Anesthesia Type: MAC +/- Procedure Notes SCOAP/Timeout: Performed Procedure in detail: Colonoscopy Patient placed in left lateral recumbent position. Time out was performed. Procedural sedation was administered by anesthesia. Examination began with a thorough inspection of the perianal area. There was no evidence of fissures, fistulae, external hemorrhoids or cutaneous malignancy. The colonoscope was then placed into the rectum and the lumen was insufflated with carbon dioxide. The scope was carefully advanced forward. Ultimately the cecum was intubated and confirmed by identification of the ileocecal valve, the appendiceal orifice and the confluence of the taenia. The scope was then slowly withdrawn examining the colon thoroughly in all directions. In the rectum, retroflexion of the scope was performed for inspection of the distal rectum and anal canal. ?Significant colonoscopy findings: ?1. Quality of the preparation-good, [place] 2-3, improved with irrigation/suction ?2. Tiny white lesion, ?small ulcer, in sigmoid colon, biopsied with cold biopsy forceps and sent to pathology 3. No endoscopic evidence for colitis otherwise, specifically at splenic flexure, normal looking mucosa 4. No polyps, mass, stricture 5. Incidental tight turn at sigmoid but navigable Scope withdrawal time: 9 minutes Findings: other findings (tiny white lesion in sigmoid colon) Specimen(s): other (biopsy) Estimated Blood Loss: 5 Complications: none Impression: No endoscopic mucosal evidence for colitis seen on CT scan Tiny white plaque, ?ulcer, biopsied in sigmoid Post-procedure Recommendations: Colonoscopy in 10 years Plan for aftercare: PACU then home Follow up: as needed Disposition: PACU
[2025-06-25 15:21] VITALS: BP 129/60; PULSE 85; RESP 14; TEMP 36.1; O2SAT 98
[2025-06-25 15:26] VITALS: BP 128/61; PULSE 84; RESP 14; O2SAT 97
[2025-06-25 15:31] VITALS: BP 133/67; PULSE 88; RESP 16; O2SAT 97
[2025-06-25 15:35] VITALS: BP 125/71; PULSE 82; RESP 14; TEMP 36.1; O2SAT 98
== END 2025-06-25 15:45 | disposition home or self-care (01) ==
PROVIDERS: Family Provider Family Medicine; PCP Family Medicine; Referring Provider Surgery; Visit Provider Surgery
PROC: 0DJD8ZZ Inspection of Lower Intestinal Tract, Via Natural or Artificial Opening Endoscopic (ICD-10-PCS; CPT 45378; principal; 2025-06-25 13:15)
DX: Z12.11 Encounter for screening for malignant neoplasm of colon (principal)
CPT/HCPCS: 45380; J2250; J2704; J7120